=== PATIENT | male | born 1975 | race Two or more races ===

== ENCOUNTER 2020-07-28 11:10 | Inpatient (IN) | payer MEDICAID, OTHER ==
[~2020-07-28] VITALS: Ht 167.6 cm; Wt 141.0 kg
[2020-07-28] MEDS ORDERED: ALBUTEROL SULF 2.5 MG/0.5ML(0.5%) NEB SOLN ONE (11:19)
[2020-07-28] MEDS ORDERED: IPRATROPIUM BROM 0.5 MG/2.5ML INH SOL ONE (11:20)
[2020-07-28] MEDS ORDERED: ALBUTEROL SULF 2.5 MG/0.5ML(0.5%) NEB SOLN NEB ONE (11:30)
[2020-07-28] MEDS ORDERED: DexAMETHasone SOD PHOS 10MG/1ML VIAL INJ IV ONE (11:30)
[2020-07-28] MEDS ORDERED: IPRATROPIUM BROM 0.5 MG/2.5ML INH SOL NEB ONE (11:30)
[2020-07-28 12:30] LABS: Basophils # (auto) 0.1 10 ^3/uL (0-0.2); Basophils % (auto) 0.4 % (0.0-2.0); Eosinophils # (auto) 0 10 ^3/uL (0-0.8); Eosinophils % (auto) 0.1 % (0.0-7.0); Hemoglobin 14.6 g/dL (13.5-17.5); Lymphocytes # (auto) 0.8 10 ^3/uL (0.4-5.4); Lymphocytes % (auto) 4.1 % (10.0-50.0); Mean Corpuscular Hemoglobin 27.4 pg (28.0-32.0); Mean Corpuscular Hgb Conc. 32.4 g/dL (32.0-36.0); Mean Corpuscular Volume 84.5 fL (80.0-100.0); Monocytes # (auto) 0.5 10 ^3/uL (0-1.3); Monocytes % (auto) 2.7 % (0.0-12.0); Neutrophils # (auto) 18.2 10 ^3/uL (1.6-8.6); Neutrophils % (auto) 92.7 % (37.0-80.0); Nucleated Red Blood Cells % 0.9 %; Platelet Count (auto) 298 10^3/uL (140-450); Red Blood Cells 5.32 10^6/uL (4.5-5.90); Red Cell Distribution Width 15.8 % (11.8-14.3); White Blood Cell 19.6 10^3/uL (4.4-10.8)
[2020-07-28 12:44] LABS: INR 1.12 (0.9-1.15)
[2020-07-28 12:51] LABS: Albumin 2.3 g/dL (3.4-5.0); Magnesium 2.5 mg/dL (1.6-2.6); Potassium 4.6 mmol/L (3.5-5.1)
[2020-07-28 12:59] LABS: BUN/Creatinine Ratio 8.6; Bilirubin, Total 0.4 mg/dL (0.2-1.0)
[2020-07-28 13:27] LABS: Lactic Acid w/Reflex 6.2 mmol/L (0.4-2.0)
[2020-07-28] MEDS ORDERED: ASPirin 325 MG TAB PO ONE (13:30)
[2020-07-28] MEDS ORDERED: AZITHROMYCIN 500MG/ 250ML 250 ML IV ONE (13:30)
[2020-07-28] MEDS ORDERED: cefTRIAXone 1GM/50ML D5W 50 ML IV ONE (13:45)
[2020-07-28] MEDS ORDERED: ENOXAPARIN SOD 80 MG/0.8ML SYRINGE SC ONE (13:45)
[2020-07-28] MEDS ORDERED: MORPHINE SULF INJ 2 MG/ML SYRINGE 1ML IV PRN ×3 (14:00→21:30)
[2020-07-28] MEDS ORDERED: NITROGLYCERIN 0.4 MG SL TAB SL PRN ×2 (14:00→21:30)
[2020-07-28] MEDS ORDERED: FUROSEMIDE 40 MG/4 ML VIAL IV ONE (14:45)
[2020-07-28 15:09] LABS: Lactate Dehydrogenase 965 U/L (87-241)
[2020-07-28 15:14] LABS: CRP High Sensitivity > 19.0 mg/dL (< 0.3)
[2020-07-28 16:29] LABS: Urine Amorphous Crystal FEW /hpf (None Seen); Urine Bacteria NONE SEEN /hpf (None Seen); Urine Blood 2+ /uL (Negative); Urine Hyaline Cast MOD /lpf (0 - 2); Urine Mucus FEW (None Seen); Urine Specific Gravity 1.024 (1.001-1.035); Urine WBC 14 /hpf (0 - 3)
[2020-07-28 18:37] VITALS: BP 115/88
[2020-07-28] MEDS ORDERED: SUCCINYLCHOLINE CHLORIDE 20 MG/ML 10ML VIAL IV ONE (20:09)
[2020-07-28] MEDS ORDERED: ETOMIDATE (2MG/ML) 20ML VIAL IV ONE (20:09)
[2020-07-28] MEDS ORDERED: MIDAZOLAM DRIP 50 mg/50mL 50 ML IV ONE (20:09)
[2020-07-28] MEDS ORDERED: PROPOFOL 100 ML IV ONE (20:09)
[2020-07-28 20:24] VITALS: BP 153/94
[2020-07-28] MEDS ORDERED: ROCURONIUM 10MG/ML 10ML VIAL IV ONE ×3 (20:40→23:31)
[2020-07-28] MEDS ORDERED: ALUM & MAG HYDROX-SIMETH LIQ(MAALOX) 30 ML PO PRN (21:30)
[2020-07-28] MEDS ORDERED: ONDANSETRON HCL 4 MG/2 ML VIAL IV PRN (21:30)
[2020-07-28] MEDS ORDERED: ACETAMINOPHEN 500 MG TAB PO PRN (21:30)
[2020-07-28] MEDS ORDERED: LORazepam 0.5 MG TAB PO PRN (21:30)
[2020-07-28] MEDS ORDERED: ALBUMIN 25% 100 ML IV ONE (21:30)
[2020-07-28] MEDS: PROPOFOL 100 ML IV SCH (21:30)
[2020-07-28] MEDS ORDERED: REMDESIVIR PER PHARMACY 0 ML IV SCH (21:30)
[2020-07-28] MEDS ORDERED: ALBUTEROL SULF HFA 90MCG INH 200DOSE IN PRN (21:30)
[2020-07-28] MEDS ORDERED: DEXTROSE (50%) 50ML SYRG IV PRN (21:30)
[2020-07-28] MEDS ORDERED: DOCUSATE SOD 100 MG CAP PO PRN (21:30)
[2020-07-28] MEDS ORDERED: HYDROcodone-ACET 5/325MG TAB PO PRN (21:30)
[2020-07-28] MEDS: BUDESONIDE (INHALATION) 180 MCG IH IN SCH (22:00)
[2020-07-28] MEDS ORDERED: levoFLOXacin 500MG 100 ML IV ONE (22:00)
[2020-07-28] MEDS ORDERED: FAMOTIDINE (10MG/ML) 2ML VL IV SCH (22:00)
[2020-07-28] MEDS ORDERED: ENOXAPARIN SOD 40 MG/0.4 ML SYRINGE SC SCH (22:00)
[2020-07-28] MEDS: MIDAZOLAM DRIP 50 mg/50mL 50 ML IV SCH (22:15)
[2020-07-28 22:30] VITALS: BP 95/48
[2020-07-28] MEDS ORDERED: ROCURONIUM BROMIDE 1,000 MG in D5W 5% 150 ML IV SCH (22:30)
[2020-07-28 23:18] LABS: Basophils # (auto) 0.1 10 ^3/uL (0-0.2); Basophils % (auto) 0.5 % (0.0-2.0); Eosinophils # (auto) 0 10 ^3/uL (0-0.8); Hematocrit 43.5 % (41.0-53.0); Hemoglobin 14.3 g/dL (13.5-17.5); Lymphocytes # (auto) 0.7 10 ^3/uL (0.4-5.4); Mean Corpuscular Hemoglobin 27.7 pg (28.0-32.0); Mean Corpuscular Hgb Conc. 32.9 g/dL (32.0-36.0); Mean Corpuscular Volume 84.3 fL (80.0-100.0); Monocytes # (auto) 0.6 10 ^3/uL (0-1.3); Monocytes % (auto) 2.7 % (0.0-12.0); Neutrophils # (auto) 20.2 10 ^3/uL (1.6-8.6); Neutrophils % (auto) 93.8 % (37.0-80.0); Nucleated Red Blood Cells % 0.9 %; Platelet Count (auto) 286 10^3/uL (140-450); Red Blood Cells 5.16 10^6/uL (4.5-5.90); White Blood Cell 21.5 10^3/uL (4.4-10.8)
[2020-07-28 23:44] LABS: Calcium 7.9 mg/dL (8.5-10.1); Magnesium 2.5 mg/dL (1.6-2.6); Potassium 5.3 mmol/L (3.5-5.1)
[2020-07-28 23:52] LABS: BUN/Creatinine Ratio 13.3; Bilirubin, Total 0.4 mg/dL (0.2-1.0)
[2020-07-29] VITALS (32 sets, daily range): BP systolic 106–133; BP diastolic 61–86
[2020-07-29] MEDS: CLINDAMYCIN 300MG IV 50 ML IV SCH ×2 (00:20→07:28)
[2020-07-29] MEDS: ACCU-CHEK COMFORT CURVE STRIP VI SCH ×5 (00:25→23:48)
[2020-07-29 01:07] LABS: Albumin 2.3 g/dL (3.4-5.0)
[2020-07-29 01:53] LABS: CRP High Sensitivity 46.9 mg/dL (< 0.3)
[2020-07-29 02:56] LABS: Urine Bacteria MANY /hpf (None Seen); Urine Blood 2+ /uL (Negative); Urine Hyaline Cast MANY /lpf (0 - 2); Urine Mucus FEW (None Seen); Urine Specific Gravity 1.019 (1.001-1.035); Urine WBC 56 /hpf (0 - 3); Urine WBC Clumps PRESENT /hpf (None Seen)
[2020-07-29 03:34] LABS: Alcohol, Urine < 3.0 mg/dL (0-10); Amphetamine Screen, Urine NEGATIVE (NEGATIVE); Barbiturate Scree,Urine NEGATIVE (NEGATIVE); Benzodiazephine Screen, Urine POSITIVE (NEGATIVE); Cannabinoid Screen, Urine NEGATIVE (NEGATIVE); Cocaine Screen, Urine NEGATIVE (NEGATIVE); Opiate Scree,Urine NEGATIVE (NEGATIVE); Phencyclidine Screen, Urine NEGATIVE (NEGATIVE)
[2020-07-29] MEDS: ALBUMIN 25% 100 ML IV SCH ×2 (05:00→19:57)
[2020-07-29] MEDS: InsuLIN REG 1unit/0.01ml Soln (100units/ml) SC SCH ×5 (06:00→23:50)
[2020-07-29 07:28] LABS: Basophils # (auto) 0 10 ^3/uL (0-0.2); Basophils % (auto) 0.3 % (0.0-2.0); Eosinophils # (auto) 0 10 ^3/uL (0-0.8); Hematocrit 41.3 % (41.0-53.0); Hemoglobin 13.5 g/dL (13.5-17.5); Lymphocytes # (auto) 0.6 10 ^3/uL (0.4-5.4); Lymphocytes % (auto) 3.2 % (10.0-50.0); Mean Corpuscular Hemoglobin 27.5 pg (28.0-32.0); Mean Corpuscular Hgb Conc. 32.6 g/dL (32.0-36.0); Mean Corpuscular Volume 84.2 fL (80.0-100.0); Monocytes # (auto) 0.4 10 ^3/uL (0-1.3); Monocytes % (auto) 2.4 % (0.0-12.0); Neutrophils % (auto) 94.1 % (37.0-80.0); Nucleated Red Blood Cells % 0.2 %; Platelet Count (auto) 277 10^3/uL (140-450); Red Cell Distribution Width 15.9 % (11.8-14.3)
[2020-07-29 07:43] LABS: Potassium 5.2 mmol/L (3.5-5.1)
[2020-07-29 07:46] LABS: INR 1.11 (0.9-1.15); Partial Thromboplastin Time 34.6 sec (23.0-31.2)
[2020-07-29 07:58] LABS: Albumin 2.2 g/dL (3.4-5.0); BUN/Creatinine Ratio 15.9; Bilirubin, Total 0.4 mg/dL (0.2-1.0); Calcium 7.5 mg/dL (8.5-10.1); Magnesium 2.8 mg/dL (1.6-2.6); Phosphorus 5.2 mg/dL (2.5-4.90); Total Protein 7.7 g/dL (6.4-8.2)
[2020-07-29] MEDS ORDERED: IVERMECTIN 3 MG TAB PO ONE (10:00)
[2020-07-29] MEDS ORDERED: ENOXAPARIN SOD 80 MG/0.8ML SYRINGE SC SCH (10:00)
[2020-07-29] MEDS: levoFLOXacin 250MG 50 ML IV SCH (10:00)
[2020-07-29] MEDS: ASCORBIC ACID 1,000 MG TAB PO SCH (10:00)
[2020-07-29] MEDS: CHOLECALCIFEROL (VITD3) 2,000 UNIT CAP/TAB PO SCH (10:00)
[2020-07-29] MEDS: DexAMETHasone SOD PHOS 10MG/1ML VIAL INJ IV SCH (10:00)
[2020-07-29] MEDS: ZINC SULFATE 220mg CAP or TAB PO SCH (10:00)
[2020-07-29] MEDS ORDERED: SODIUM ZIRCONIUM CYCL 10 GM PAK PO ONE (10:15)
[2020-07-29] MEDS: FUROSEMIDE 20 MG/2 ML VIAL IV SCH ×2 (11:27→18:21)
[2020-07-29] MEDS ORDERED: diphenhdrAMINE HCL 50 MG/1 ML VL IV ONE (16:30)
[2020-07-29] MEDS ORDERED: ACETAMINOPHEN 650 mg PER 20.3 mL UD PO ONE (16:30)
[2020-07-29] MEDS ORDERED: methylPREDNISolone SOD SUCC 40 MG/ML VL IV ONE (16:30)
[2020-07-29] MEDS ORDERED: TOCILIZUMAB 400 MG in SODIUM CHL 0.9% 80 ML IV ONE (17:00)
[2020-07-29] MEDS: ROCURONIUM BROMIDE 1,000 MG in D5W 5% 150 ML IV SCH ×2 (17:32→23:10)
[2020-07-29] MEDS: BUDESONIDE (INHALATION) 180 MCG IH IN SCH (22:00)
[2020-07-29] MEDS: LINEZOLID 600MG/300ML 300 ML IV SCH (22:54)
[2020-07-29] MEDS: PROPOFOL 100 ML IV SCH (23:12)
[2020-07-29] MEDS: ENOXAPARIN SOD 80 MG/0.8ML SYRINGE SC SCH (23:40)
[2020-07-29] MEDS ORDERED: FAMOTIDINE (10MG/ML) 2ML VL IV ONE (23:45)
[2020-07-30] VITALS (96 sets, daily range): BP systolic 96–147; BP diastolic 58–85
[2020-07-30] MEDS: MIDAZOLAM DRIP 50 mg/50mL 50 ML IV SCH ×4 (00:34→22:46)
[2020-07-30] MEDS ORDERED: ALBUMIN 25% 100 ML IV ONE (03:27)
[2020-07-30] MEDS: ALBUMIN 25% 100 ML IV SCH (03:28)
[2020-07-30] MEDS: PROPOFOL 100 ML IV SCH ×4 (03:58→21:54)
[2020-07-30] MEDS: ACCU-CHEK COMFORT CURVE STRIP VI SCH ×4 (06:21→23:18)
[2020-07-30] MEDS: FUROSEMIDE 20 MG/2 ML VIAL IV SCH (06:23)
[2020-07-30 06:24] LABS: Potassium 4.3 mmol/L (3.5-5.1)
[2020-07-30] MEDS: InsuLIN REG 1unit/0.01ml Soln (100units/ml) SC SCH ×4 (06:24→23:38)
[2020-07-30 06:37] LABS: Albumin 2.6 g/dL (3.4-5.0); BUN/Creatinine Ratio 21.1; Bilirubin, Total 1.2 mg/dL (0.2-1.0); Total Protein 7.6 g/dL (6.4-8.2)
[2020-07-30 07:28] LABS: Basophils # (auto) 0 10 ^3/uL (0-0.2); Basophils % (auto) 0.1 % (0.0-2.0); Eosinophils # (auto) 0 10 ^3/uL (0-0.8); Hematocrit 36.9 % (41.0-53.0); Hemoglobin 12.4 g/dL (13.5-17.5); Lymphocytes # (auto) 0.4 10 ^3/uL (0.4-5.4); Lymphocytes % (auto) 4.1 % (10.0-50.0); Mean Corpuscular Hgb Conc. 33.7 g/dL (32.0-36.0); Mean Corpuscular Volume 83.2 fL (80.0-100.0); Monocytes # (auto) 0.4 10 ^3/uL (0-1.3); Monocytes % (auto) 3.9 % (0.0-12.0); Neutrophils # (auto) 9.6 10 ^3/uL (1.6-8.6); Neutrophils % (auto) 91.9 % (37.0-80.0); Nucleated Red Blood Cells % 0.7 %; Platelet Count (auto) 265 10^3/uL (140-450); Red Blood Cells 4.43 10^6/uL (4.5-5.90); Red Cell Distribution Width 15.8 % (11.8-14.3); White Blood Cell 10.4 10^3/uL (4.4-10.8)
[2020-07-30] MEDS ORDERED: methylPREDNISolone SOD SUCC 40 MG/ML VL IV ONE (08:30)
[2020-07-30] MEDS ORDERED: diphenhdrAMINE HCL 50 MG/1 ML VL IV ONE (08:30)
[2020-07-30] MEDS ORDERED: ACETAMINOPHEN 650 mg PER 20.3 mL UD PO ONE (08:30)
[2020-07-30] MEDS: FAMOTIDINE (10MG/ML) 2ML VL IV SCH (08:37)
[2020-07-30] MEDS: DexAMETHasone SOD PHOS 10MG/1ML VIAL INJ IV SCH (08:37)
[2020-07-30] MEDS ORDERED: ACETAMINOPHEN 650 MG RECT SUPP PR ONE (08:45)
[2020-07-30] MEDS ORDERED: TOCILIZUMAB 400 MG in SODIUM CHL 0.9% 80 ML IV ONE (09:00)
[2020-07-30] MEDS: CHOLECALCIFEROL (VITD3) 2,000 UNIT CAP/TAB PO SCH (09:34)
[2020-07-30] MEDS: ASCORBIC ACID 1,000 MG TAB PO SCH (10:00)
[2020-07-30] MEDS: ZINC SULFATE 220mg CAP or TAB PO SCH (10:00)
[2020-07-30] MEDS ORDERED: Jevity 1.2 Cal/Fiber 1 Liter GT SCH (10:30)
[2020-07-30] MEDS ORDERED: CLINIMIX PER PHARMACY 0 ML IV SCH (10:45)
[2020-07-30] MEDS: levoFLOXacin 250MG 50 ML IV SCH (10:49)
[2020-07-30] MEDS: FREE WATER GT SCH ×2 (11:43→18:29)
[2020-07-30] MEDS: LINEZOLID 600MG/300ML 300 ML IV SCH ×2 (11:44→21:50)
[2020-07-30] MEDS: ENOXAPARIN SOD 80 MG/0.8ML SYRINGE SC SCH ×2 (12:00→22:05)
[2020-07-30] MEDS ORDERED: DEXTROSE (50%) 50ML SYRG IV SCH (12:00)
[2020-07-30] MEDS: BUDESONIDE (INHALATION) 0.5 MG/2 ML NEB NEB SCH ×2 (15:33→22:17)
[2020-07-30] MEDS: AMINO ACID INFUSION IN D10W 1,000 ML IV NR (21:17)
[2020-07-30] MEDS: ROCURONIUM BROMIDE 1,000 MG in D5W 5% 150 ML IV SCH (21:46)
[2020-07-30] MEDS: ALBUTEROL SULF 2.5 MG/0.5ML(0.5%) NEB SOLN NEB PRN (22:17)
[2020-07-31] VITALS (72 sets, daily range): BP systolic 96–201; BP diastolic 47–98
[2020-07-31] MEDS: PROPOFOL 100 ML IV SCH ×5 (02:48→23:01)
[2020-07-31 06:12] LABS: Basophils # (auto) 0 10 ^3/uL (0-0.2); Basophils % (auto) 0.2 % (0.0-2.0); Eosinophils # (auto) 0 10 ^3/uL (0-0.8); Lymphocytes # (auto) 0.5 10 ^3/uL (0.4-5.4); Lymphocytes % (auto) 5.5 % (10.0-50.0); Mean Corpuscular Hemoglobin 27.4 pg (28.0-32.0); Mean Corpuscular Hgb Conc. 33.3 g/dL (32.0-36.0); Mean Corpuscular Volume 82.4 fL (80.0-100.0); Monocytes # (auto) 0.8 10 ^3/uL (0-1.3); Monocytes % (auto) 9.4 % (0.0-12.0); Neutrophils # (auto) 7.1 10 ^3/uL (1.6-8.6); Neutrophils % (auto) 84.9 % (37.0-80.0); Nucleated Red Blood Cells % 2.2 %; Platelet Count (auto) 381 10^3/uL (140-450); Red Blood Cells 4.37 10^6/uL (4.5-5.90); Red Cell Distribution Width 15.6 % (11.8-14.3); White Blood Cell 8.4 10^3/uL (4.4-10.8)
[2020-07-31] MEDS: InsuLIN REG 1unit/0.01ml Soln (100units/ml) SC SCH ×4 (06:45→23:17)
[2020-07-31] MEDS: ACCU-CHEK COMFORT CURVE STRIP VI SCH ×4 (06:45→23:17)
[2020-07-31] MEDS: BUDESONIDE (INHALATION) 0.5 MG/2 ML NEB NEB SCH ×2 (06:50→19:04)
[2020-07-31] MEDS: ALBUTEROL SULF 2.5 MG/0.5ML(0.5%) NEB SOLN NEB PRN ×2 (06:50→19:04)
[2020-07-31] MEDS: CHOLECALCIFEROL (VITD3) 2,000 UNIT CAP/TAB PO SCH (10:00)
[2020-07-31] MEDS: FAMOTIDINE (10MG/ML) 2ML VL IV SCH (10:00)
[2020-07-31] MEDS: ZINC SULFATE 220mg CAP or TAB PO SCH (10:04)
[2020-07-31] MEDS: ENOXAPARIN SOD 80 MG/0.8ML SYRINGE SC SCH ×2 (10:05→23:07)
[2020-07-31] MEDS: DexAMETHasone SOD PHOS 10MG/1ML VIAL INJ IV SCH (10:08)
[2020-07-31] MEDS: LINEZOLID 600MG/300ML 300 ML IV SCH ×2 (10:09→23:25)
[2020-07-31] MEDS: FUROSEMIDE 20 MG/2 ML VIAL IV SCH (10:11)
[2020-07-31] MEDS: ASCORBIC ACID 1,000 MG TAB PO SCH (10:15)
[2020-07-31] MEDS: levoFLOXacin 250MG 50 ML IV SCH (10:16)
[2020-07-31 10:21] LABS: Albumin 2.3 g/dL (3.4-5.0); Calcium 8.5 mg/dL (8.5-10.1); Magnesium 3.5 mg/dL (1.6-2.6)
[2020-07-31 10:27] LABS: BUN/Creatinine Ratio 30.1; Phosphorus 2.8 mg/dL (2.5-4.90)
[2020-07-31] MEDS: DOPamine 1600MCG/ML D5W 250 ML IV SCH ×2 (11:00→17:19)
[2020-07-31] MEDS ORDERED: Glucerna 1.2 Cal 1Liter BOTTLE GT SCH (15:15)
[2020-07-31] MEDS ORDERED: REMDESIVIR 200 MG in NS 210ml LOADING DOSE ADULT IV ONE ×2 (18:00→20:00)
[2020-07-31] MEDS: fentaNYL Drip 2500mCg/250mlNS 250 ML IV SCH (18:18)
[2020-07-31] MEDS: MIDAZOLAM DRIP 50 mg/50mL 50 ML IV SCH (18:57)
[2020-07-31 19:40] LABS: Creatinine, Urine 110 mg/dL (30.0-125.0); Sodium Urine 11 mmol/L (40-220)
[2020-07-31] MEDS: AMINO ACID INFUSION IN D10W 1,000 ML IV NR (19:49)
[2020-07-31] MEDS ORDERED: AMINO ACID INFUSION IN D10W 1,000 ML IV NR (20:00)
[2020-08-01] VITALS (97 sets, daily range): BP systolic 53–132; BP diastolic 47–70
[2020-08-01] MEDS: MIDAZOLAM DRIP 50 mg/50mL 50 ML IV SCH ×5 (01:34→22:43)
[2020-08-01] MEDS: PROPOFOL 100 ML IV SCH ×4 (01:35→09:30)
[2020-08-01 04:25] LABS: Hematocrit 37.2 % (41.0-53.0); Hemoglobin 12.3 g/dL (13.5-17.5); Mean Corpuscular Hemoglobin 27.2 pg (28.0-32.0); Mean Corpuscular Volume 82.5 fL (80.0-100.0); Platelet Count (auto) 328 10^3/uL (140-450); Red Blood Cells 4.51 10^6/uL (4.5-5.90); Red Cell Distribution Width 15.7 % (11.8-14.3); White Blood Cell 9.6 10^3/uL (4.4-10.8)
[2020-08-01 04:55] LABS: Potassium 4.3 mmol/L (3.5-5.1)
[2020-08-01 05:04] LABS: Albumin 2.2 g/dL (3.4-5.0); BUN/Creatinine Ratio 37.9; Bilirubin, Total 0.8 mg/dL (0.2-1.0); Calcium 8.1 mg/dL (8.5-10.1); Magnesium 3.4 mg/dL (1.6-2.6); Phosphorus 3.7 mg/dL (2.5-4.90); Total Protein 6.9 g/dL (6.4-8.2)
[2020-08-01 05:15] LABS: Basophils % (manual) 0 (0.0-2.0); Blast Cells 0; Eosinophils % (manual) 0 (0-7); Metamyelocytes % 0; Promyelocytes % 0
[2020-08-01] MEDS: ACCU-CHEK COMFORT CURVE STRIP VI SCH ×4 (06:00→23:27)
[2020-08-01] MEDS: InsuLIN REG 1unit/0.01ml Soln (100units/ml) SC SCH ×4 (06:00→23:27)
[2020-08-01] MEDS: BUDESONIDE (INHALATION) 0.5 MG/2 ML NEB NEB SCH ×2 (06:15→21:55)
[2020-08-01] MEDS: ALBUTEROL SULF 2.5 MG/0.5ML(0.5%) NEB SOLN NEB PRN ×2 (06:15→21:55)
[2020-08-01 06:38] LABS: Band Neutrophils % (manual) 9; Lymphocytes % (manual) 11 (10.0-50.0); Monocytes % (manual) 4 (0-12); Myelocytes % 2
[2020-08-01 06:39] LABS: Reactive Lymphocytes 1
[2020-08-01] MEDS: fentaNYL Drip 2500mCg/250mlNS 250 ML IV SCH (08:02)
[2020-08-01] MEDS: levoFLOXacin 250MG 50 ML IV SCH (09:48)
[2020-08-01] MEDS: DexAMETHasone SOD PHOS 10MG/1ML VIAL INJ IV SCH (09:48)
[2020-08-01] MEDS: FUROSEMIDE 20 MG/2 ML VIAL IV SCH (09:48)
[2020-08-01] MEDS: FAMOTIDINE (10MG/ML) 2ML VL IV SCH ×2 (09:52→22:00)
[2020-08-01] MEDS: CHOLECALCIFEROL (VITD3) 2,000 UNIT CAP/TAB PO SCH (09:53)
[2020-08-01] MEDS: ZINC SULFATE 220mg CAP or TAB PO SCH (09:53)
[2020-08-01] MEDS: ASCORBIC ACID 1,000 MG TAB PO SCH (09:53)
[2020-08-01] MEDS: LINEZOLID 600MG/300ML 300 ML IV SCH ×2 (09:53→22:00)
[2020-08-01] MEDS: ENOXAPARIN SOD 80 MG/0.8ML SYRINGE SC SCH ×2 (10:00→22:41)
[2020-08-01] MEDS ORDERED: METOCLOPRAMIDE HCL 5MG/ml INJ 2ml VIAL IV ONE (14:30)
[2020-08-01] MEDS: REMDESIVIR 100mg 100 MG in SODIUM CHL 0.9% 230 ML IV SCH (15:00)
[2020-08-01] MEDS ORDERED: AMINO ACID INFUSION IN D10W 1,000 ML IV NR (20:00)
[2020-08-01] MEDS: METOCLOPRAMIDE HCL 5MG/ml INJ 2ml VIAL IV SCH (22:41)
[2020-08-02] VITALS (83 sets, daily range): BP systolic 66–132; BP diastolic 45–68
[2020-08-02] MEDS: MIDAZOLAM DRIP 50 mg/50mL 50 ML IV SCH ×3 (03:42→20:26)
[2020-08-02 04:21] LABS: Albumin 2.2 g/dL (3.4-5.0); Calcium 7.6 mg/dL (8.5-10.1); Potassium 4.5 mmol/L (3.5-5.1)
[2020-08-02 04:24] LABS: Bilirubin, Total 0.7 mg/dL (0.2-1.0); Total Protein 6.6 g/dL (6.4-8.2)
[2020-08-02] MEDS: InsuLIN REG 1unit/0.01ml Soln (100units/ml) SC SCH ×3 (06:00→18:00)
[2020-08-02] MEDS: METOCLOPRAMIDE HCL 5MG/ml INJ 2ml VIAL IV SCH ×2 (06:01→22:00)
[2020-08-02] MEDS: ACCU-CHEK COMFORT CURVE STRIP VI SCH ×4 (06:02→23:38)
[2020-08-02] MEDS: PROPOFOL 100 ML IV SCH (07:39)
[2020-08-02] MEDS: DexAMETHasone SOD PHOS 10MG/1ML VIAL INJ IV SCH (09:48)
[2020-08-02] MEDS: FUROSEMIDE 20 MG/2 ML VIAL IV SCH ×2 (09:49→18:00)
[2020-08-02] MEDS: levoFLOXacin 500MG 100 ML IV SCH (09:49)
[2020-08-02] MEDS: FAMOTIDINE (10MG/ML) 2ML VL IV SCH ×2 (09:50→22:00)
[2020-08-02] MEDS: LINEZOLID 600MG/300ML 300 ML IV SCH (09:50)
[2020-08-02] MEDS: ZINC SULFATE 220mg CAP or TAB PO SCH (09:50)
[2020-08-02] MEDS: ASCORBIC ACID 1,000 MG TAB PO SCH (09:50)
[2020-08-02] MEDS: CHOLECALCIFEROL (VITD3) 2,000 UNIT CAP/TAB PO SCH (09:51)
[2020-08-02] MEDS: ENOXAPARIN SOD 80 MG/0.8ML SYRINGE SC SCH (09:51)
[2020-08-02] MEDS: BUDESONIDE (INHALATION) 0.5 MG/2 ML NEB NEB SCH ×2 (10:00→22:30)
[2020-08-02] MEDS: ALBUTEROL SULF 2.5 MG/0.5ML(0.5%) NEB SOLN NEB PRN (10:58)
[2020-08-02] MEDS ORDERED: LORazepam 2MG/ML-1ML VIAL IV PRN (13:00)
[2020-08-02] MEDS: REMDESIVIR 100mg 100 MG in SODIUM CHL 0.9% 230 ML IV SCH (15:00)
[2020-08-02] MEDS: DOPamine 1600MCG/ML D5W 250 ML IV SCH ×2 (18:51→20:14)
[2020-08-02] MEDS: fentaNYL Drip 2500mCg/250mlNS 250 ML IV SCH (23:34)
[2020-08-03] VITALS (65 sets, daily range): BP systolic 73–142; BP diastolic 43–76
[2020-08-03] MEDS: DexAMETHasone SOD PHOS 10MG/1ML VIAL INJ IV SCH ×2 (00:42→10:00)
[2020-08-03] MEDS: LINEZOLID 600MG/300ML 300 ML IV SCH ×2 (00:43→10:11)
[2020-08-03] MEDS: ENOXAPARIN SOD 80 MG/0.8ML SYRINGE SC SCH ×2 (00:44→10:11)
[2020-08-03] MEDS: MIDAZOLAM DRIP 50 mg/50mL 50 ML IV SCH ×4 (01:00→23:00)
[2020-08-03 05:28] LABS: Basophils # (auto) 0 10 ^3/uL (0-0.2); Basophils % (auto) 0.2 % (0.0-2.0); Eosinophils # (auto) 0.7 10 ^3/uL (0-0.8); Eosinophils % (auto) 6.1 % (0.0-7.0); Hematocrit 41.7 % (41.0-53.0); Hemoglobin 13.7 g/dL (13.5-17.5); Lymphocytes # (auto) 0.5 10 ^3/uL (0.4-5.4); Lymphocytes % (auto) 4.4 % (10.0-50.0); Mean Corpuscular Hemoglobin 27.7 pg (28.0-32.0); Mean Corpuscular Hgb Conc. 32.8 g/dL (32.0-36.0); Mean Corpuscular Volume 84.5 fL (80.0-100.0); Monocytes # (auto) 0.3 10 ^3/uL (0-1.3); Monocytes % (auto) 3.1 % (0.0-12.0); Neutrophils # (auto) 9.5 10 ^3/uL (1.6-8.6); Neutrophils % (auto) 86.2 % (37.0-80.0); Nucleated Red Blood Cells % 0.3 %; Platelet Count (auto) 319 10^3/uL (140-450); Red Blood Cells 4.93 10^6/uL (4.5-5.90)
[2020-08-03] MEDS: METOCLOPRAMIDE HCL 5MG/ml INJ 2ml VIAL IV SCH ×2 (06:00→14:00)
[2020-08-03] MEDS: FUROSEMIDE 20 MG/2 ML VIAL IV SCH ×2 (06:00→18:21)
[2020-08-03] MEDS: InsuLIN REG 1unit/0.01ml Soln (100units/ml) SC SCH ×3 (06:00→18:00)
[2020-08-03 06:01] LABS: Albumin 2.2 g/dL (3.4-5.0); BUN/Creatinine Ratio 45.6; Calcium 7.7 mg/dL (8.5-10.1); Total Protein 6.8 g/dL (6.4-8.2)
[2020-08-03] MEDS: ALBUTEROL SULF 2.5 MG/0.5ML(0.5%) NEB SOLN NEB PRN ×2 (06:50→18:54)
[2020-08-03] MEDS: BUDESONIDE (INHALATION) 0.5 MG/2 ML NEB NEB SCH ×2 (06:50→18:54)
[2020-08-03] MEDS: DOPamine 1600MCG/ML D5W 250 ML IV SCH (08:05)
[2020-08-03] MEDS: ASCORBIC ACID 1,000 MG TAB PO SCH (10:11)
[2020-08-03] MEDS: CHOLECALCIFEROL (VITD3) 2,000 UNIT CAP/TAB PO SCH (10:11)
[2020-08-03] MEDS: ZINC SULFATE 220mg CAP or TAB PO SCH (10:11)
[2020-08-03] MEDS: levoFLOXacin 500MG 100 ML IV SCH (10:11)
[2020-08-03] MEDS: FAMOTIDINE (10MG/ML) 2ML VL IV SCH (10:11)
[2020-08-03] MEDS: ACCU-CHEK COMFORT CURVE STRIP VI SCH ×2 (12:00→18:21)
[2020-08-03] MEDS ORDERED: Glucerna 1.2 Cal 1Liter BOTTLE GT SCH (13:00)
[2020-08-03] MEDS ORDERED: ALBUMIN 25% 50 ML IV ONE (13:00)
[2020-08-03] MEDS ORDERED: FLUCONAZOLE 200MG/100ML 100 ML IV ONE (13:00)
[2020-08-03] MEDS ORDERED: PIPERACILLIN-TAZOB 3.375GM 100 ML IV ONE (14:00)
[2020-08-03] MEDS: REMDESIVIR 100mg 100 MG in SODIUM CHL 0.9% 230 ML IV SCH (15:00)
[2020-08-03] MEDS: NOREPINEPHRINE 8 MG/250ML KIT 250 ML IV SCH (22:15)
[2020-08-04] VITALS (100 sets, daily range): BP systolic 97–141; BP diastolic 53–78
[2020-08-04] MEDS: PROPOFOL 100 ML IV SCH ×3 (01:00→22:14)
[2020-08-04] MEDS: fentaNYL Drip 2500mCg/250mlNS 250 ML IV SCH ×2 (01:30→23:39)
[2020-08-04] MEDS: DexAMETHasone SOD PHOS 10MG/1ML VIAL INJ IV SCH ×3 (02:40→21:38)
[2020-08-04] MEDS: FAMOTIDINE (10MG/ML) 2ML VL IV SCH ×3 (02:41→21:38)
[2020-08-04] MEDS: METOCLOPRAMIDE HCL 5MG/ml INJ 2ml VIAL IV SCH ×4 (02:42→21:38)
[2020-08-04] MEDS: MIDAZOLAM DRIP 50 mg/50mL 50 ML IV SCH ×3 (02:43→22:21)
[2020-08-04] MEDS: PIPERACILLIN-TAZOB 3.375GM 100 ML IV SCH ×4 (02:45→22:14)
[2020-08-04] MEDS: LINEZOLID 600MG/300ML 300 ML IV SCH ×3 (02:46→21:38)
[2020-08-04] MEDS: ENOXAPARIN SOD 80 MG/0.8ML SYRINGE SC SCH ×3 (02:47→21:38)
[2020-08-04 05:01] LABS: Basophils # (auto) 0 10 ^3/uL (0-0.2); Basophils % (auto) 0.1 % (0.0-2.0); Eosinophils # (auto) 0.2 10 ^3/uL (0-0.8); Hematocrit 38.6 % (41.0-53.0); Hemoglobin 12.6 g/dL (13.5-17.5); Lymphocytes # (auto) 0.5 10 ^3/uL (0.4-5.4); Lymphocytes % (auto) 7.1 % (10.0-50.0); Mean Corpuscular Hemoglobin 27.5 pg (28.0-32.0); Mean Corpuscular Hgb Conc. 32.6 g/dL (32.0-36.0); Mean Corpuscular Volume 84.2 fL (80.0-100.0); Monocytes # (auto) 0.3 10 ^3/uL (0-1.3); Monocytes % (auto) 5.3 % (0.0-12.0); Neutrophils # (auto) 5.5 10 ^3/uL (1.6-8.6); Neutrophils % (auto) 84.5 % (37.0-80.0); Nucleated Red Blood Cells % 0.3 %; Platelet Count (auto) 285 10^3/uL (140-450); Red Blood Cells 4.58 10^6/uL (4.5-5.90); Red Cell Distribution Width 15.8 % (11.8-14.3); White Blood Cell 6.5 10^3/uL (4.4-10.8)
[2020-08-04] MEDS: InsuLIN REG 1unit/0.01ml Soln (100units/ml) SC SCH ×5 (05:10→23:56)
[2020-08-04] MEDS: ACCU-CHEK COMFORT CURVE STRIP VI SCH ×4 (05:10→18:00)
[2020-08-04 05:24] LABS: Potassium 4.8 mmol/L (3.5-5.1)
[2020-08-04 05:35] LABS: Albumin 2.3 g/dL (3.4-5.0); BUN/Creatinine Ratio 44.6; Bilirubin, Total 0.7 mg/dL (0.2-1.0); Calcium 7.8 mg/dL (8.5-10.1); Total Protein 6.4 g/dL (6.4-8.2)
[2020-08-04] MEDS: FUROSEMIDE 20 MG/2 ML VIAL IV SCH ×2 (06:49→18:00)
[2020-08-04] MEDS: ALBUTEROL SULF 2.5 MG/0.5ML(0.5%) NEB SOLN NEB PRN ×2 (07:55→22:29)
[2020-08-04] MEDS: BUDESONIDE (INHALATION) 0.5 MG/2 ML NEB NEB SCH ×2 (07:55→22:29)
[2020-08-04] MEDS: DOPamine 1600MCG/ML D5W 250 ML IV SCH (08:05)
[2020-08-04] MEDS: CHOLECALCIFEROL (VITD3) 2,000 UNIT CAP/TAB PO SCH (10:00)
[2020-08-04] MEDS: ZINC SULFATE 220mg CAP or TAB PO SCH (10:00)
[2020-08-04] MEDS: ASCORBIC ACID 1,000 MG TAB PO SCH (10:00)
[2020-08-04] MEDS: FLUCONAZOLE 200MG/100ML 100 ML IV SCH (11:00)
[2020-08-04] MEDS: REMDESIVIR 100mg 100 MG in SODIUM CHL 0.9% 230 ML IV SCH (15:00)
[2020-08-04] MEDS: NOREPINEPHRINE 8 MG/250ML KIT 250 ML IV SCH (22:15)
[2020-08-05] VITALS (98 sets, daily range): BP systolic 113–143; BP diastolic 55–78
[2020-08-05] MEDS: PROPOFOL 100 ML IV SCH ×3 (01:21→23:46)
[2020-08-05] MEDS: DOPamine 1600MCG/ML D5W 250 ML IV SCH ×2 (02:42→07:40)
[2020-08-05] MEDS: MIDAZOLAM DRIP 50 mg/50mL 50 ML IV SCH ×3 (03:01→21:00)
[2020-08-05] MEDS: InsuLIN REG 1unit/0.01ml Soln (100units/ml) SC SCH ×3 (05:47→18:00)
[2020-08-05] MEDS: METOCLOPRAMIDE HCL 5MG/ml INJ 2ml VIAL IV SCH ×3 (05:47→22:00)
[2020-08-05] MEDS: FUROSEMIDE 20 MG/2 ML VIAL IV SCH (05:47)
[2020-08-05] MEDS: ACCU-CHEK COMFORT CURVE STRIP VI SCH ×4 (05:47→18:00)
[2020-08-05] MEDS: PIPERACILLIN-TAZOB 3.375GM 100 ML IV SCH ×3 (05:47→22:00)
[2020-08-05 05:58] LABS: Basophils # (auto) 0 10 ^3/uL (0-0.2); Basophils % (auto) 0.3 % (0.0-2.0); Eosinophils # (auto) 0.1 10 ^3/uL (0-0.8); Eosinophils % (auto) 0.9 % (0.0-7.0); Hematocrit 39.6 % (41.0-53.0); Lymphocytes # (auto) 0.3 10 ^3/uL (0.4-5.4); Mean Corpuscular Hemoglobin 27.7 pg (28.0-32.0); Mean Corpuscular Hgb Conc. 32.7 g/dL (32.0-36.0); Mean Corpuscular Volume 84.6 fL (80.0-100.0); Monocytes # (auto) 0.2 10 ^3/uL (0-1.3); Monocytes % (auto) 2.1 % (0.0-12.0); Neutrophils # (auto) 7.7 10 ^3/uL (1.6-8.6); Neutrophils % (auto) 92.7 % (37.0-80.0); Nucleated Red Blood Cells % 0.1 %; Platelet Count (auto) 327 10^3/uL (140-450); Red Blood Cells 4.69 10^6/uL (4.5-5.90); Red Cell Distribution Width 16.1 % (11.8-14.3); White Blood Cell 8.3 10^3/uL (4.4-10.8)
[2020-08-05 06:11] LABS: Potassium 5.1 mmol/L (3.5-5.1)
[2020-08-05 06:18] LABS: BUN/Creatinine Ratio 52.3
[2020-08-05] MEDS: ALBUTEROL SULF 2.5 MG/0.5ML(0.5%) NEB SOLN NEB PRN (06:30)
[2020-08-05] MEDS: BUDESONIDE (INHALATION) 0.5 MG/2 ML NEB NEB SCH ×2 (06:30→22:00)
[2020-08-05] MEDS: ASCORBIC ACID 1,000 MG TAB PO SCH (10:05)
[2020-08-05] MEDS: FAMOTIDINE (10MG/ML) 2ML VL IV SCH (10:05)
[2020-08-05] MEDS: CHOLECALCIFEROL (VITD3) 2,000 UNIT CAP/TAB PO SCH (10:05)
[2020-08-05] MEDS: ENOXAPARIN SOD 80 MG/0.8ML SYRINGE SC SCH ×2 (10:05→22:00)
[2020-08-05] MEDS: ZINC SULFATE 220mg CAP or TAB PO SCH (10:05)
[2020-08-05] MEDS: FLUCONAZOLE 200MG/100ML 100 ML IV SCH (10:05)
[2020-08-05] MEDS: LINEZOLID 600MG/300ML 300 ML IV SCH ×2 (10:31→22:00)
[2020-08-05] MEDS: DexAMETHasone SOD PHOS 10MG/1ML VIAL INJ IV SCH ×2 (11:00→22:00)
[2020-08-05] MEDS: ERGOCALCIFEROL 50,000 UNIT(1.25MG) CAP PO SCH (16:15)
[2020-08-05] MEDS ORDERED: PANTOPRAZOLE 40 MG/10 ML VIAL INJ IV ONE (16:15)
[2020-08-05] MEDS: NOREPINEPHRINE 8 MG/250ML KIT 250 ML IV SCH (22:15)
[2020-08-06] VITALS (68 sets, daily range): BP systolic 98–170; BP diastolic 52–89
[2020-08-06] MEDS: fentaNYL Drip 2500mCg/250mlNS 250 ML IV SCH ×2 (02:15→16:30)
[2020-08-06] MEDS: PROPOFOL 100 ML IV SCH ×4 (05:20→20:30)
[2020-08-06] MEDS: MIDAZOLAM DRIP 50 mg/50mL 50 ML IV SCH ×4 (05:23→21:00)
[2020-08-06] MEDS: InsuLIN REG 1unit/0.01ml Soln (100units/ml) SC SCH ×3 (06:00→12:00)
[2020-08-06] MEDS: FUROSEMIDE 20 MG/2 ML VIAL IV SCH (06:00)
[2020-08-06 06:08] LABS: Basophils # (auto) 0 10 ^3/uL (0-0.2); Basophils % (auto) 0.4 % (0.0-2.0); Eosinophils # (auto) 0 10 ^3/uL (0-0.8); Eosinophils % (auto) 0.2 % (0.0-7.0); Hemoglobin 12.9 g/dL (13.5-17.5); Lymphocytes # (auto) 0.5 10 ^3/uL (0.4-5.4); Lymphocytes % (auto) 6.3 % (10.0-50.0); Mean Corpuscular Hemoglobin 27.8 pg (28.0-32.0); Mean Corpuscular Volume 84.2 fL (80.0-100.0); Monocytes # (auto) 0.4 10 ^3/uL (0-1.3); Monocytes % (auto) 5.4 % (0.0-12.0); Neutrophils # (auto) 6.3 10 ^3/uL (1.6-8.6); Neutrophils % (auto) 87.7 % (37.0-80.0); Nucleated Red Blood Cells % 0.1 %; Platelet Count (auto) 327 10^3/uL (140-450); Red Blood Cells 4.63 10^6/uL (4.5-5.90); White Blood Cell 7.2 10^3/uL (4.4-10.8)
[2020-08-06] MEDS: METOCLOPRAMIDE HCL 5MG/ml INJ 2ml VIAL IV SCH ×3 (06:29→22:00)
[2020-08-06] MEDS: PIPERACILLIN-TAZOB 3.375GM 100 ML IV SCH ×3 (06:30→22:00)
[2020-08-06 06:32] LABS: Albumin 2.4 g/dL (3.4-5.0); Calcium 8.1 mg/dL (8.5-10.1); Potassium 4.7 mmol/L (3.5-5.1)
[2020-08-06 06:36] LABS: BUN/Creatinine Ratio 47.8; Bilirubin, Total 0.6 mg/dL (0.2-1.0); CRP High Sensitivity 0.64 mg/dL (< 0.3); Total Protein 6.5 g/dL (6.4-8.2)
[2020-08-06] MEDS: ALBUTEROL SULF 2.5 MG/0.5ML(0.5%) NEB SOLN NEB PRN (07:10)
[2020-08-06] MEDS: BUDESONIDE (INHALATION) 0.5 MG/2 ML NEB NEB SCH ×2 (07:10→22:00)
[2020-08-06] MEDS: PANTOPRAZOLE 40 MG/10 ML VIAL INJ IV SCH (10:20)
[2020-08-06] MEDS: LINEZOLID 600MG/300ML 300 ML IV SCH ×2 (10:20→22:00)
[2020-08-06] MEDS: ENOXAPARIN SOD 80 MG/0.8ML SYRINGE SC SCH ×2 (10:20→22:00)
[2020-08-06] MEDS: ZINC SULFATE 220mg CAP or TAB PO SCH (10:20)
[2020-08-06] MEDS: ASCORBIC ACID 1,000 MG TAB PO SCH (10:20)
[2020-08-06] MEDS: CHOLECALCIFEROL (VITD3) 2,000 UNIT CAP/TAB PO SCH (10:20)
[2020-08-06] MEDS: FLUCONAZOLE 200MG/100ML 100 ML IV SCH (10:20)
[2020-08-06] MEDS: DexAMETHasone SOD PHOS 10MG/1ML VIAL INJ IV SCH ×2 (10:20→22:00)
[2020-08-06] MEDS: ACCU-CHEK COMFORT CURVE STRIP VI SCH ×2 (18:00)
[2020-08-06] MEDS: NOREPINEPHRINE 8 MG/250ML KIT 250 ML IV SCH (22:15)
[2020-08-07] VITALS (98 sets, daily range): BP systolic 83–164; BP diastolic 49–89
[2020-08-07] MEDS: PROPOFOL 100 ML IV SCH ×5 (04:16→23:54)
[2020-08-07] MEDS: MIDAZOLAM DRIP 50 mg/50mL 50 ML IV SCH ×3 (04:22→20:39)
[2020-08-07] MEDS: METOCLOPRAMIDE HCL 5MG/ml INJ 2ml VIAL IV SCH ×3 (05:01→22:16)
[2020-08-07] MEDS: PIPERACILLIN-TAZOB 3.375GM 100 ML IV SCH ×3 (05:02→22:16)
[2020-08-07] MEDS: FUROSEMIDE 20 MG/2 ML VIAL IV SCH ×3 (05:09→06:53)
[2020-08-07] MEDS: InsuLIN REG 1unit/0.01ml Soln (100units/ml) SC SCH ×4 (06:00→18:00)
[2020-08-07] MEDS: ACCU-CHEK COMFORT CURVE STRIP VI SCH ×5 (06:00→19:17)
[2020-08-07] MEDS: BUDESONIDE (INHALATION) 0.5 MG/2 ML NEB NEB SCH ×2 (07:00→19:01)
[2020-08-07] MEDS: ALBUTEROL SULF 2.5 MG/0.5ML(0.5%) NEB SOLN NEB PRN ×2 (07:00→19:01)
[2020-08-07] MEDS: DOPamine 1600MCG/ML D5W 250 ML IV SCH (07:41)
[2020-08-07] MEDS: DexAMETHasone SOD PHOS 10MG/1ML VIAL INJ IV SCH ×2 (08:48→22:16)
[2020-08-07] MEDS: PANTOPRAZOLE 40 MG/10 ML VIAL INJ IV SCH (08:49)
[2020-08-07] MEDS: FLUCONAZOLE 200MG/100ML 100 ML IV SCH (08:49)
[2020-08-07] MEDS: ZINC SULFATE 220mg CAP or TAB PO SCH (08:54)
[2020-08-07] MEDS: CHOLECALCIFEROL (VITD3) 2,000 UNIT CAP/TAB PO SCH (08:55)
[2020-08-07] MEDS: ENOXAPARIN SOD 80 MG/0.8ML SYRINGE SC SCH (08:55)
[2020-08-07] MEDS: ASCORBIC ACID 1,000 MG TAB PO SCH (08:55)
[2020-08-07] MEDS: LINEZOLID 600MG/300ML 300 ML IV SCH ×2 (11:22→22:17)
[2020-08-07] MEDS ORDERED: SENNA 8.6 MG TAB PO ONE (14:30)
[2020-08-07] MEDS ORDERED: METOCLOPRAMIDE HCL 5MG/ml INJ 2ml VIAL ONE (14:37)
[2020-08-07] MEDS ORDERED: METOCLOPRAMIDE HCL 5MG/ml INJ 2ml VIAL IV ONE (14:45)
[2020-08-07] MEDS: LACTULOSE 20Gm/30ML SOLN PO SCH (18:00)
[2020-08-07] MEDS: FUROSEMIDE 40 MG/4 ML VIAL IV SCH (18:30)
[2020-08-07] MEDS: NOREPINEPHRINE 8 MG/250ML KIT 250 ML IV SCH (22:15)
[2020-08-07] MEDS: ENOXAPARIN SOD 100 MG/1 ML SYRINGE SC SCH (22:17)
[2020-08-07] MEDS: fentaNYL Drip 2500mCg/250mlNS 250 ML IV SCH (23:56)
[2020-08-08] VITALS (97 sets, daily range): BP systolic 112–170; BP diastolic 57–93
[2020-08-08] MEDS: BUDESONIDE (INHALATION) 0.5 MG/2 ML NEB NEB SCH ×2 (00:32→06:50)
[2020-08-08] MEDS: MIDAZOLAM DRIP 50 mg/50mL 50 ML IV SCH ×6 (02:21→23:00)
[2020-08-08] MEDS: PROPOFOL 100 ML IV SCH ×4 (03:36→21:00)
[2020-08-08 05:05] LABS: Basophils # (auto) 0.1 10 ^3/uL (0-0.2); Basophils % (auto) 0.9 % (0.0-2.0); Eosinophils # (auto) 0 10 ^3/uL (0-0.8); Eosinophils % (auto) 0.1 % (0.0-7.0); Hemoglobin 13.4 g/dL (13.5-17.5); Lymphocytes # (auto) 0.5 10 ^3/uL (0.4-5.4); Lymphocytes % (auto) 6.9 % (10.0-50.0); Mean Corpuscular Hemoglobin 27.7 pg (28.0-32.0); Mean Corpuscular Hgb Conc. 33.5 g/dL (32.0-36.0); Mean Corpuscular Volume 82.7 fL (80.0-100.0); Monocytes # (auto) 0.4 10 ^3/uL (0-1.3); Monocytes % (auto) 5.6 % (0.0-12.0); Neutrophils # (auto) 6.9 10 ^3/uL (1.6-8.6); Neutrophils % (auto) 86.5 % (37.0-80.0); Nucleated Red Blood Cells % 0.1 %; Platelet Count (auto) 337 10^3/uL (140-450); Red Blood Cells 4.83 10^6/uL (4.5-5.90); Red Cell Distribution Width 15.7 % (11.8-14.3)
[2020-08-08 05:20] LABS: BUN/Creatinine Ratio 52.1; Calcium 8.3 mg/dL (8.5-10.1)
[2020-08-08] MEDS: METOCLOPRAMIDE HCL 5MG/ml INJ 2ml VIAL IV SCH ×3 (05:49→22:00)
[2020-08-08] MEDS: FUROSEMIDE 40 MG/4 ML VIAL IV SCH ×2 (05:49→20:00)
[2020-08-08] MEDS: PIPERACILLIN-TAZOB 3.375GM 100 ML IV SCH ×3 (05:49→22:00)
[2020-08-08] MEDS: ACCU-CHEK COMFORT CURVE STRIP VI SCH ×3 (05:50→12:00)
[2020-08-08] MEDS: InsuLIN REG 1unit/0.01ml Soln (100units/ml) SC SCH ×3 (05:50→12:00)
[2020-08-08] MEDS: LACTULOSE 20Gm/30ML SOLN PO SCH ×3 (05:50→12:00)
[2020-08-08] MEDS: ALBUTEROL SULF 2.5 MG/0.5ML(0.5%) NEB SOLN NEB PRN (06:50)
[2020-08-08] MEDS: PANTOPRAZOLE 40 MG/10 ML VIAL INJ IV SCH (10:00)
[2020-08-08] MEDS: FLUCONAZOLE 200MG/100ML 100 ML IV SCH (10:00)
[2020-08-08] MEDS: ZINC SULFATE 220mg CAP or TAB PO SCH (10:00)
[2020-08-08] MEDS: CHOLECALCIFEROL (VITD3) 2,000 UNIT CAP/TAB PO SCH (10:00)
[2020-08-08] MEDS: ENOXAPARIN SOD 100 MG/1 ML SYRINGE SC SCH ×2 (10:00→22:00)
[2020-08-08] MEDS: ASCORBIC ACID 1,000 MG TAB PO SCH (10:00)
[2020-08-08] MEDS: DexAMETHasone SOD PHOS 10MG/1ML VIAL INJ IV SCH ×2 (10:00→22:00)
[2020-08-08] MEDS: LINEZOLID 600MG/300ML 300 ML IV SCH ×2 (11:15→22:00)
[2020-08-08] MEDS: fentaNYL Drip 2500mCg/250mlNS 250 ML IV SCH (20:00)
[2020-08-08] MEDS: NOREPINEPHRINE 8 MG/250ML KIT 250 ML IV SCH (22:15)
[2020-08-09] VITALS (89 sets, daily range): BP systolic 104–146; BP diastolic 53–78
[2020-08-09] MEDS: ALBUTEROL SULF 2.5 MG/0.5ML(0.5%) NEB SOLN NEB PRN ×4 (00:35→22:34)
[2020-08-09] MEDS: PROPOFOL 100 ML IV SCH ×3 (01:50→21:28)
[2020-08-09] MEDS: BUDESONIDE (INHALATION) 0.5 MG/2 ML NEB NEB SCH ×2 (05:52→22:33)
[2020-08-09] MEDS: PIPERACILLIN-TAZOB 3.375GM 100 ML IV SCH ×3 (06:00→21:16)
[2020-08-09] MEDS: FUROSEMIDE 40 MG/4 ML VIAL IV SCH ×2 (06:00→18:00)
[2020-08-09] MEDS: InsuLIN REG 1unit/0.01ml Soln (100units/ml) SC SCH ×4 (06:00→18:00)
[2020-08-09] MEDS: METOCLOPRAMIDE HCL 5MG/ml INJ 2ml VIAL IV SCH ×3 (06:00→21:16)
[2020-08-09] MEDS: LACTULOSE 20Gm/30ML SOLN PO SCH ×4 (06:00→18:00)
[2020-08-09] MEDS: ACCU-CHEK COMFORT CURVE STRIP VI SCH ×4 (06:00→18:00)
[2020-08-09 06:06] LABS: Potassium 3.6 mmol/L (3.5-5.1)
[2020-08-09 06:14] LABS: Calcium 8.2 mg/dL (8.5-10.1)
[2020-08-09] MEDS: MIDAZOLAM DRIP 50 mg/50mL 50 ML IV SCH ×4 (06:46→21:16)
[2020-08-09] MEDS: PANTOPRAZOLE 40 MG/10 ML VIAL INJ IV SCH (08:45)
[2020-08-09] MEDS: ZINC SULFATE 220mg CAP or TAB PO SCH (08:45)
[2020-08-09] MEDS: ASCORBIC ACID 1,000 MG TAB PO SCH (08:45)
[2020-08-09] MEDS: FLUCONAZOLE 200MG/100ML 100 ML IV SCH (08:45)
[2020-08-09] MEDS: DexAMETHasone SOD PHOS 10MG/1ML VIAL INJ IV SCH ×2 (08:45→21:16)
[2020-08-09] MEDS: ENOXAPARIN SOD 100 MG/1 ML SYRINGE SC SCH ×2 (08:46→21:17)
[2020-08-09] MEDS: CHOLECALCIFEROL (VITD3) 2,000 UNIT CAP/TAB PO SCH (08:46)
[2020-08-09] MEDS: LINEZOLID 600MG/300ML 300 ML IV SCH ×2 (09:47→21:16)
[2020-08-09] MEDS: fentaNYL Drip 2500mCg/250mlNS 250 ML IV SCH (15:09)
[2020-08-09 19:52] LABS: INR 1.05 (0.9-1.15); Partial Thromboplastin Time 27.6 sec (23.0-31.2)
[2020-08-10] VITALS (74 sets, daily range): BP systolic 108–146; BP diastolic 60–81
[2020-08-10] MEDS: PROPOFOL 100 ML IV SCH ×2 (01:00→09:26)
[2020-08-10] MEDS: FUROSEMIDE 40 MG/4 ML VIAL IV SCH ×2 (05:28→18:10)
[2020-08-10] MEDS: PIPERACILLIN-TAZOB 3.375GM 100 ML IV SCH ×3 (05:28→21:53)
[2020-08-10] MEDS: METOCLOPRAMIDE HCL 5MG/ml INJ 2ml VIAL IV SCH ×2 (05:28→10:58)
[2020-08-10] MEDS: ACCU-CHEK COMFORT CURVE STRIP VI SCH ×4 (05:29→18:10)
[2020-08-10] MEDS: LACTULOSE 20Gm/30ML SOLN PO SCH ×3 (05:29→07:30)
[2020-08-10] MEDS: InsuLIN REG 1unit/0.01ml Soln (100units/ml) SC SCH ×4 (06:00→18:00)
[2020-08-10] MEDS: BUDESONIDE (INHALATION) 0.5 MG/2 ML NEB NEB SCH ×2 (07:50→18:53)
[2020-08-10] MEDS: ALBUTEROL SULF 2.5 MG/0.5ML(0.5%) NEB SOLN NEB PRN ×2 (07:50→19:50)
[2020-08-10] MEDS: DexAMETHasone SOD PHOS 10MG/1ML VIAL INJ IV SCH ×2 (08:29→21:53)
[2020-08-10] MEDS: CHOLECALCIFEROL (VITD3) 2,000 UNIT CAP/TAB PO SCH (08:30)
[2020-08-10] MEDS: ENOXAPARIN SOD 100 MG/1 ML SYRINGE SC SCH ×2 (08:30→21:53)
[2020-08-10] MEDS: ASCORBIC ACID 1,000 MG TAB PO SCH (08:30)
[2020-08-10] MEDS: ZINC SULFATE 220mg CAP or TAB PO SCH (08:30)
[2020-08-10] MEDS: NOREPINEPHRINE 8 MG/250ML KIT 250 ML IV SCH (08:47)
[2020-08-10] MEDS: LINEZOLID 600MG/300ML 300 ML IV SCH ×2 (08:47→21:53)
[2020-08-10] MEDS: FLUCONAZOLE 200MG/100ML 100 ML IV SCH (09:15)
[2020-08-10] MEDS: PANTOPRAZOLE 40 MG/10 ML VIAL INJ IV SCH (09:15)
[2020-08-10] MEDS: fentaNYL Drip 2500mCg/250mlNS 250 ML IV SCH ×2 (09:20→22:14)
[2020-08-10] MEDS: MIDAZOLAM DRIP 50 mg/50mL 50 ML IV SCH (09:26)
[2020-08-10] MEDS ORDERED: LIDOCAINE 1% (LOCAL ANESTH.) PF 5ml SDV ID ONE (13:15)
[2020-08-10] MEDS: SODIUM CHLOR 0.9% PF (SALINE LOCK) 10ML VIAL/SYR IV SCH (21:53)
[2020-08-11] VITALS (87 sets, daily range): BP systolic 116–151; BP diastolic 64–82
[2020-08-11] MEDS: InsuLIN REG 1unit/0.01ml Soln (100units/ml) SC SCH ×5 (00:11→23:57)
[2020-08-11] MEDS: PROPOFOL 100 ML IV SCH ×5 (01:10→20:20)
[2020-08-11] MEDS: MIDAZOLAM DRIP 50 mg/50mL 50 ML IV SCH ×3 (03:48→15:05)
[2020-08-11] MEDS: PIPERACILLIN-TAZOB 3.375GM 100 ML IV SCH ×3 (05:14→22:00)
[2020-08-11] MEDS: FUROSEMIDE 40 MG/4 ML VIAL IV SCH ×2 (05:14→17:08)
[2020-08-11] MEDS: ACCU-CHEK COMFORT CURVE STRIP VI SCH ×5 (05:28→23:58)
[2020-08-11] MEDS: BUDESONIDE (INHALATION) 0.5 MG/2 ML NEB NEB SCH ×2 (06:24→22:15)
[2020-08-11] MEDS: ALBUTEROL SULF 2.5 MG/0.5ML(0.5%) NEB SOLN NEB PRN ×2 (06:25→22:15)
[2020-08-11 07:59] LABS: Albumin 2.7 g/dL (3.4-5.0); Potassium 3.5 mmol/L (3.5-5.1)
[2020-08-11 08:03] LABS: BUN/Creatinine Ratio 45.3; Bilirubin, Total 0.8 mg/dL (0.2-1.0); Total Protein 6.4 g/dL (6.4-8.2)
[2020-08-11] MEDS: LINEZOLID 600MG/300ML 300 ML IV SCH ×2 (09:20→20:19)
[2020-08-11] MEDS: ENOXAPARIN SOD 100 MG/1 ML SYRINGE SC SCH ×2 (09:20→22:00)
[2020-08-11] MEDS: ZINC SULFATE 220mg CAP or TAB PO SCH (09:20)
[2020-08-11] MEDS: DexAMETHasone SOD PHOS 10MG/1ML VIAL INJ IV SCH ×2 (09:20→22:00)
[2020-08-11] MEDS: CHOLECALCIFEROL (VITD3) 2,000 UNIT CAP/TAB PO SCH (09:21)
[2020-08-11] MEDS: ASCORBIC ACID 1,000 MG TAB PO SCH (09:21)
[2020-08-11] MEDS: PANTOPRAZOLE 40 MG/10 ML VIAL INJ IV SCH (10:00)
[2020-08-11] MEDS: FLUCONAZOLE 200MG/100ML 100 ML IV SCH (10:00)
[2020-08-11] MEDS: SODIUM CHLOR 0.9% PF (SALINE LOCK) 10ML VIAL/SYR IV SCH ×2 (10:20→22:00)
[2020-08-11] MEDS: fentaNYL Drip 2500mCg/250mlNS 250 ML IV SCH ×2 (10:32→21:00)
[2020-08-11] MEDS: NOREPINEPHRINE 8 MG/250ML KIT 250 ML IV SCH (22:15)
[2020-08-12] VITALS (98 sets, daily range): BP systolic 93–148; BP diastolic 53–88
[2020-08-12 03:57] LABS: Basophils # (auto) 0 10 ^3/uL (0-0.2); Basophils % (auto) 0.2 % (0.0-2.0); Eosinophils # (auto) 0 10 ^3/uL (0-0.8); Hematocrit 40.2 % (41.0-53.0); Hemoglobin 13.5 g/dL (13.5-17.5); Lymphocytes # (auto) 0.5 10 ^3/uL (0.4-5.4); Lymphocytes % (auto) 5.7 % (10.0-50.0); Mean Corpuscular Hemoglobin 28.1 pg (28.0-32.0); Mean Corpuscular Hgb Conc. 33.6 g/dL (32.0-36.0); Mean Corpuscular Volume 83.5 fL (80.0-100.0); Monocytes # (auto) 0.7 10 ^3/uL (0-1.3); Monocytes % (auto) 7.5 % (0.0-12.0); Neutrophils % (auto) 86.6 % (37.0-80.0); Nucleated Red Blood Cells % 0.1 %; Platelet Count (auto) 255 10^3/uL (140-450); Red Blood Cells 4.81 10^6/uL (4.5-5.90); Red Cell Distribution Width 15.3 % (11.8-14.3); White Blood Cell 9.2 10^3/uL (4.4-10.8)
[2020-08-12 04:18] LABS: BUN/Creatinine Ratio 38.6; Calcium 8.2 mg/dL (8.5-10.1); Potassium 3.1 mmol/L (3.5-5.1)
[2020-08-12] MEDS: PIPERACILLIN-TAZOB 3.375GM 100 ML IV SCH ×3 (06:00→22:10)
[2020-08-12] MEDS: InsuLIN REG 1unit/0.01ml Soln (100units/ml) SC SCH ×3 (06:00→17:06)
[2020-08-12] MEDS: ACCU-CHEK COMFORT CURVE STRIP VI SCH ×3 (06:00→17:06)
[2020-08-12] MEDS: FUROSEMIDE 40 MG/4 ML VIAL IV SCH ×2 (06:00→17:07)
[2020-08-12] MEDS: ALBUTEROL SULF 2.5 MG/0.5ML(0.5%) NEB SOLN NEB PRN (07:00)
[2020-08-12] MEDS: BUDESONIDE (INHALATION) 0.5 MG/2 ML NEB NEB SCH ×2 (07:00→22:00)
[2020-08-12] MEDS: PROPOFOL 100 ML IV SCH ×4 (07:30→18:59)
[2020-08-12] MEDS: DexAMETHasone SOD PHOS 10MG/1ML VIAL INJ IV SCH ×2 (09:09→22:10)
[2020-08-12] MEDS: PANTOPRAZOLE 40 MG/10 ML VIAL INJ IV SCH (09:09)
[2020-08-12] MEDS: CHOLECALCIFEROL (VITD3) 2,000 UNIT CAP/TAB PO SCH (09:10)
[2020-08-12] MEDS: SODIUM CHLOR 0.9% PF (SALINE LOCK) 10ML VIAL/SYR IV SCH ×2 (09:10→22:10)
[2020-08-12] MEDS: ENOXAPARIN SOD 100 MG/1 ML SYRINGE SC SCH ×2 (09:10→22:10)
[2020-08-12] MEDS: ASCORBIC ACID 1,000 MG TAB PO SCH (09:10)
[2020-08-12] MEDS: ZINC SULFATE 220mg CAP or TAB PO SCH (09:10)
[2020-08-12] MEDS: LINEZOLID 600MG/300ML 300 ML IV SCH ×2 (09:39→22:10)
[2020-08-12] MEDS: FLUCONAZOLE 200MG/100ML 100 ML IV SCH (11:54)
[2020-08-12] MEDS ORDERED: FAMOTIDINE INJECTION 40 MG in SODIUM CHL 0.9% 100 ML IV ONE (12:45)
[2020-08-12] MEDS ORDERED: POTASSIUM EFFERVESENT TAB 25 MEQ GT ONE (13:00)
[2020-08-12] MEDS ORDERED: PANTOPRAZOLE 40 MG/10 ML VIAL INJ IV ONE (13:15)
[2020-08-12] MEDS: MIDAZOLAM DRIP 50 mg/50mL 50 ML IV SCH ×2 (13:30→18:59)
[2020-08-12] MEDS: fentaNYL Drip 2500mCg/250mlNS 250 ML IV SCH (13:39)
[2020-08-12] MEDS: ERGOCALCIFEROL 50,000 UNIT(1.25MG) CAP PO SCH (15:17)
[2020-08-12] MEDS: POTASSIUM EFFERVESENT TAB 25 MEQ GT SCH (22:10)
[2020-08-12] MEDS: NOREPINEPHRINE 8 MG/250ML KIT 250 ML IV SCH (22:15)
[2020-08-13] VITALS (97 sets, daily range): BP systolic 108–153; BP diastolic 62–93
[2020-08-13] MEDS: fentaNYL Drip 2500mCg/250mlNS 250 ML IV SCH ×2 (01:31→15:17)
[2020-08-13] MEDS: InsuLIN REG 1unit/0.01ml Soln (100units/ml) SC SCH ×4 (06:00→17:17)
[2020-08-13] MEDS: FUROSEMIDE 40 MG/4 ML VIAL IV SCH ×2 (06:00→17:16)
[2020-08-13] MEDS: PIPERACILLIN-TAZOB 3.375GM 100 ML IV SCH ×3 (06:00→22:00)
[2020-08-13] MEDS: ACCU-CHEK COMFORT CURVE STRIP VI SCH ×4 (06:00→17:10)
[2020-08-13] MEDS: BUDESONIDE (INHALATION) 0.5 MG/2 ML NEB NEB SCH ×2 (06:11→22:20)
[2020-08-13] MEDS: ALBUTEROL SULF 2.5 MG/0.5ML(0.5%) NEB SOLN NEB PRN ×2 (06:12→22:20)
[2020-08-13] MEDS: MIDAZOLAM DRIP 50 mg/50mL 50 ML IV SCH ×3 (07:10→15:38)
[2020-08-13] MEDS: DexAMETHasone SOD PHOS 10MG/1ML VIAL INJ IV SCH ×2 (09:30→22:00)
[2020-08-13] MEDS: POTASSIUM EFFERVESENT TAB 25 MEQ GT SCH ×2 (09:30→22:00)
[2020-08-13] MEDS: FLUCONAZOLE 200MG/100ML 100 ML IV SCH (09:30)
[2020-08-13] MEDS: PANTOPRAZOLE 40 MG/10 ML VIAL INJ IV SCH (09:30)
[2020-08-13] MEDS: ASCORBIC ACID 1,000 MG TAB PO SCH (09:31)
[2020-08-13] MEDS: CHOLECALCIFEROL (VITD3) 2,000 UNIT CAP/TAB PO SCH (09:31)
[2020-08-13] MEDS: ENOXAPARIN SOD 100 MG/1 ML SYRINGE SC SCH ×2 (09:31→22:00)
[2020-08-13] MEDS: ZINC SULFATE 220mg CAP or TAB PO SCH (09:31)
[2020-08-13] MEDS: SODIUM CHLOR 0.9% PF (SALINE LOCK) 10ML VIAL/SYR IV SCH ×2 (09:31→22:00)
[2020-08-13] MEDS ORDERED: FAMOTIDINE INJECTION 40 MG in SODIUM CHL 0.9% 100 ML IV SCH (10:00)
[2020-08-13] MEDS: LINEZOLID 600MG/300ML 300 ML IV SCH ×2 (10:45→22:00)
[2020-08-13 11:46] LABS: Basophils # (auto) 0 10 ^3/uL (0-0.2); Basophils % (auto) 0.3 % (0.0-2.0); Eosinophils # (auto) 0 10 ^3/uL (0-0.8); Hematocrit 39.8 % (41.0-53.0); Hemoglobin 13.2 g/dL (13.5-17.5); Lymphocytes # (auto) 0.7 10 ^3/uL (0.4-5.4); Mean Corpuscular Hemoglobin 27.6 pg (28.0-32.0); Mean Corpuscular Hgb Conc. 33.2 g/dL (32.0-36.0); Mean Corpuscular Volume 83.2 fL (80.0-100.0); Monocytes # (auto) 0.5 10 ^3/uL (0-1.3); Monocytes % (auto) 4.6 % (0.0-12.0); Neutrophils % (auto) 89.1 % (37.0-80.0); Nucleated Red Blood Cells % 0.1 %; Platelet Count (auto) 240 10^3/uL (140-450); Red Blood Cells 4.78 10^6/uL (4.5-5.90); Red Cell Distribution Width 15.6 % (11.8-14.3); White Blood Cell 11.2 10^3/uL (4.4-10.8)
[2020-08-13] MEDS: PROPOFOL 100 ML IV SCH ×3 (11:50→15:16)
[2020-08-13 11:59] LABS: BUN/Creatinine Ratio 46.7; Calcium 8.3 mg/dL (8.5-10.1)
[2020-08-13] MEDS: NOREPINEPHRINE 8 MG/250ML KIT 250 ML IV SCH (22:15)
[2020-08-14] VITALS (85 sets, daily range): BP systolic 105–146; BP diastolic 64–96
[2020-08-14] MEDS: InsuLIN REG 1unit/0.01ml Soln (100units/ml) SC SCH ×5 (00:10→23:22)
[2020-08-14] MEDS: ACCU-CHEK COMFORT CURVE STRIP VI SCH ×5 (00:18→23:22)
[2020-08-14] MEDS: PROPOFOL 100 ML IV SCH ×5 (02:49→18:15)
[2020-08-14] MEDS: MIDAZOLAM DRIP 50 mg/50mL 50 ML IV SCH ×3 (02:50→14:48)
[2020-08-14] MEDS: fentaNYL Drip 2500mCg/250mlNS 250 ML IV SCH ×2 (02:50→16:33)
[2020-08-14 05:06] LABS: Basophils # (auto) 0 10 ^3/uL (0-0.2); Eosinophils # (auto) 0 10 ^3/uL (0-0.8); Eosinophils % (auto) 0.1 % (0.0-7.0); Hematocrit 42.4 % (41.0-53.0); Hemoglobin 14.1 g/dL (13.5-17.5); Lymphocytes # (auto) 0.7 10 ^3/uL (0.4-5.4); Lymphocytes % (auto) 5.8 % (10.0-50.0); Mean Corpuscular Hgb Conc. 33.2 g/dL (32.0-36.0); Mean Corpuscular Volume 84.4 fL (80.0-100.0); Monocytes # (auto) 0.7 10 ^3/uL (0-1.3); Monocytes % (auto) 6.3 % (0.0-12.0); Neutrophils # (auto) 9.9 10 ^3/uL (1.6-8.6); Neutrophils % (auto) 87.8 % (37.0-80.0); Nucleated Red Blood Cells % 0.1 %; Platelet Count (auto) 242 10^3/uL (140-450); Red Blood Cells 5.02 10^6/uL (4.5-5.90); Red Cell Distribution Width 15.4 % (11.8-14.3); White Blood Cell 11.3 10^3/uL (4.4-10.8)
[2020-08-14 05:38] LABS: Calcium 8.7 mg/dL (8.5-10.1); Potassium 3.8 mmol/L (3.5-5.1)
[2020-08-14 05:41] LABS: Albumin 2.8 g/dL (3.4-5.0); BUN/Creatinine Ratio 43.9
[2020-08-14 05:44] LABS: Bilirubin, Total 0.7 mg/dL (0.2-1.0); Total Protein 6.5 g/dL (6.4-8.2)
[2020-08-14] MEDS: FUROSEMIDE 40 MG/4 ML VIAL IV SCH ×2 (06:00→17:02)
[2020-08-14] MEDS: PIPERACILLIN-TAZOB 3.375GM 100 ML IV SCH ×3 (06:00→22:00)
[2020-08-14] MEDS: BUDESONIDE (INHALATION) 0.5 MG/2 ML NEB NEB SCH ×2 (06:28→22:00)
[2020-08-14] MEDS: ALBUTEROL SULF 2.5 MG/0.5ML(0.5%) NEB SOLN NEB PRN ×2 (06:28→22:31)
[2020-08-14] MEDS: ASCORBIC ACID 1,000 MG TAB PO SCH (09:19)
[2020-08-14] MEDS: FLUCONAZOLE 200MG/100ML 100 ML IV SCH (09:19)
[2020-08-14] MEDS: CHOLECALCIFEROL (VITD3) 2,000 UNIT CAP/TAB PO SCH (09:19)
[2020-08-14] MEDS: DexAMETHasone SOD PHOS 10MG/1ML VIAL INJ IV SCH ×2 (09:19→22:00)
[2020-08-14] MEDS: PANTOPRAZOLE 40 MG/10 ML VIAL INJ IV SCH (09:19)
[2020-08-14] MEDS: SODIUM CHLOR 0.9% PF (SALINE LOCK) 10ML VIAL/SYR IV SCH ×2 (09:19→22:00)
[2020-08-14] MEDS: ZINC SULFATE 220mg CAP or TAB PO SCH (09:19)
[2020-08-14] MEDS: POTASSIUM EFFERVESENT TAB 25 MEQ GT SCH ×2 (09:19→22:00)
[2020-08-14] MEDS: ENOXAPARIN SOD 100 MG/1 ML SYRINGE SC SCH (09:20)
[2020-08-14] MEDS: LINEZOLID 600MG/300ML 300 ML IV SCH ×2 (10:16→22:00)
[2020-08-14] MEDS: ENOXAPARIN SOD 80 MG/0.8ML SYRINGE SC SCH (22:00)
[2020-08-14] MEDS: NOREPINEPHRINE 8 MG/250ML KIT 250 ML IV SCH (22:15)
[2020-08-15] VITALS (78 sets, daily range): BP systolic 97–135; BP diastolic 62–92
[2020-08-15 04:18] LABS: Basophils # (auto) 0 10 ^3/uL (0-0.2); Basophils % (auto) 0.3 % (0.0-2.0); Eosinophils # (auto) 0.1 10 ^3/uL (0-0.8); Eosinophils % (auto) 0.6 % (0.0-7.0); Hematocrit 36.4 % (41.0-53.0); Hemoglobin 12.8 g/dL (13.5-17.5); Lymphocytes # (auto) 1.1 10 ^3/uL (0.4-5.4); Lymphocytes % (auto) 8.9 % (10.0-50.0); Mean Corpuscular Hemoglobin 29.7 pg (28.0-32.0); Mean Corpuscular Hgb Conc. 35.2 g/dL (32.0-36.0); Mean Corpuscular Volume 84.3 fL (80.0-100.0); Monocytes # (auto) 1.1 10 ^3/uL (0-1.3); Monocytes % (auto) 8.9 % (0.0-12.0); Neutrophils % (auto) 81.3 % (37.0-80.0); Nucleated Red Blood Cells % 0.1 %; Platelet Count (auto) 221 10^3/uL (140-450); Red Blood Cells 4.32 10^6/uL (4.5-5.90); Red Cell Distribution Width 15.4 % (11.8-14.3); White Blood Cell 12.3 10^3/uL (4.4-10.8)
[2020-08-15 04:42] LABS: Calcium 6.7 mg/dL (8.5-10.1); Potassium 3.7 mmol/L (3.5-5.1)
[2020-08-15 04:53] LABS: BUN/Creatinine Ratio 44.9
[2020-08-15] MEDS: InsuLIN REG 1unit/0.01ml Soln (100units/ml) SC SCH ×3 (06:00→18:00)
[2020-08-15] MEDS: PIPERACILLIN-TAZOB 3.375GM 100 ML IV SCH ×3 (06:04→22:45)
[2020-08-15] MEDS: ACCU-CHEK COMFORT CURVE STRIP VI SCH ×3 (06:04→18:00)
[2020-08-15] MEDS: FUROSEMIDE 40 MG/4 ML VIAL IV SCH (06:05)
[2020-08-15] MEDS: BUDESONIDE (INHALATION) 0.5 MG/2 ML NEB NEB SCH ×2 (06:06→18:11)
[2020-08-15] MEDS: PROPOFOL 100 ML IV SCH (09:39)
[2020-08-15] MEDS: FLUCONAZOLE 200MG/100ML 100 ML IV SCH (09:40)
[2020-08-15] MEDS: MIDAZOLAM DRIP 50 mg/50mL 50 ML IV SCH (09:40)
[2020-08-15] MEDS: ASCORBIC ACID 1,000 MG TAB PO SCH (10:00)
[2020-08-15] MEDS: SODIUM CHLOR 0.9% PF (SALINE LOCK) 10ML VIAL/SYR IV SCH ×2 (10:00→22:44)
[2020-08-15] MEDS: DexAMETHasone SOD PHOS 10MG/1ML VIAL INJ IV SCH ×2 (10:00→22:44)
[2020-08-15] MEDS: ENOXAPARIN SOD 80 MG/0.8ML SYRINGE SC SCH ×2 (10:00→22:45)
[2020-08-15] MEDS: ZINC SULFATE 220mg CAP or TAB PO SCH (10:00)
[2020-08-15] MEDS: CHOLECALCIFEROL (VITD3) 2,000 UNIT CAP/TAB PO SCH (10:00)
[2020-08-15] MEDS: LINEZOLID 600MG/300ML 300 ML IV SCH ×2 (10:00→22:00)
[2020-08-15] MEDS: PANTOPRAZOLE 40 MG/10 ML VIAL INJ IV SCH (10:00)
[2020-08-15] MEDS: POTASSIUM EFFERVESENT TAB 25 MEQ GT SCH ×2 (10:00→22:44)
[2020-08-15] MEDS: FUROSEMIDE 20 MG/2 ML VIAL IV SCH (18:00)
[2020-08-15] MEDS: ALBUTEROL SULF 2.5 MG/0.5ML(0.5%) NEB SOLN NEB PRN (18:11)
[2020-08-15] MEDS: fentaNYL Drip 2500mCg/250mlNS 250 ML IV SCH (18:32)
[2020-08-15] MEDS: NOREPINEPHRINE 8 MG/250ML KIT 250 ML IV SCH (22:15)
[2020-08-16] VITALS (84 sets, daily range): BP systolic 93–164; BP diastolic 51–84
[2020-08-16 04:58] LABS: Basophils # (auto) 0 10 ^3/uL (0-0.2); Basophils % (auto) 0.1 % (0.0-2.0); Eosinophils # (auto) 0 10 ^3/uL (0-0.8); Eosinophils % (auto) 0.3 % (0.0-7.0); Hemoglobin 12.8 g/dL (13.5-17.5); Lymphocytes # (auto) 0.4 10 ^3/uL (0.4-5.4); Lymphocytes % (auto) 2.6 % (10.0-50.0); Mean Corpuscular Hemoglobin 27.6 pg (28.0-32.0); Mean Corpuscular Hgb Conc. 32.8 g/dL (32.0-36.0); Mean Corpuscular Volume 84.3 fL (80.0-100.0); Monocytes # (auto) 0.4 10 ^3/uL (0-1.3); Monocytes % (auto) 2.7 % (0.0-12.0); Neutrophils # (auto) 12.7 10 ^3/uL (1.6-8.6); Neutrophils % (auto) 94.3 % (37.0-80.0); Platelet Count (auto) 199 10^3/uL (140-450); Red Blood Cells 4.62 10^6/uL (4.5-5.90); White Blood Cell 13.5 10^3/uL (4.4-10.8)
[2020-08-16 05:13] LABS: Potassium 4.1 mmol/L (3.5-5.1)
[2020-08-16 05:23] LABS: BUN/Creatinine Ratio 45.4; Calcium 8.6 mg/dL (8.5-10.1)
[2020-08-16] MEDS: FUROSEMIDE 20 MG/2 ML VIAL IV SCH (05:43)
[2020-08-16] MEDS: PIPERACILLIN-TAZOB 3.375GM 100 ML IV SCH ×3 (05:43→22:52)
[2020-08-16] MEDS: ACCU-CHEK COMFORT CURVE STRIP VI SCH ×4 (06:00→18:11)
[2020-08-16] MEDS: InsuLIN REG 1unit/0.01ml Soln (100units/ml) SC SCH ×4 (06:02→18:11)
[2020-08-16] MEDS: BUDESONIDE (INHALATION) 0.5 MG/2 ML NEB NEB SCH ×3 (07:52→19:48)
[2020-08-16] MEDS: PROPOFOL 100 ML IV SCH (08:59)
[2020-08-16] MEDS: ZINC SULFATE 220mg CAP or TAB PO SCH ×2 (10:00→10:08)
[2020-08-16] MEDS: CHOLECALCIFEROL (VITD3) 2,000 UNIT CAP/TAB PO SCH ×2 (10:00→10:08)
[2020-08-16] MEDS: POTASSIUM EFFERVESENT TAB 25 MEQ GT SCH ×2 (10:00→10:07)
[2020-08-16] MEDS: ASCORBIC ACID 1,000 MG TAB PO SCH ×2 (10:00→10:08)
[2020-08-16] MEDS: ENOXAPARIN SOD 80 MG/0.8ML SYRINGE SC SCH ×2 (10:00→22:52)
[2020-08-16] MEDS: PANTOPRAZOLE 40 MG/10 ML VIAL INJ IV SCH (10:07)
[2020-08-16] MEDS: DexAMETHasone SOD PHOS 10MG/1ML VIAL INJ IV SCH ×2 (10:07→22:41)
[2020-08-16] MEDS: FLUCONAZOLE 200MG/100ML 100 ML IV SCH (10:08)
[2020-08-16] MEDS: SODIUM CHLOR 0.9% PF (SALINE LOCK) 10ML VIAL/SYR IV SCH ×2 (10:08→22:52)
[2020-08-16] MEDS: LINEZOLID 600MG/300ML 300 ML IV SCH ×2 (10:08→22:00)
[2020-08-16] MEDS: fentaNYL Drip 2500mCg/250mlNS 250 ML IV SCH (17:00)
[2020-08-16] MEDS: ALBUTEROL SULF 2.5 MG/0.5ML(0.5%) NEB SOLN NEB PRN (19:48)
[2020-08-16] MEDS: MIDAZOLAM DRIP 50 mg/50mL 50 ML IV SCH (22:15)
[2020-08-16] MEDS: NOREPINEPHRINE 8 MG/250ML KIT 250 ML IV SCH (22:15)
[2020-08-17] VITALS (52 sets, daily range): BP systolic 117–192; BP diastolic 62–102
[2020-08-17] MEDS: ACCU-CHEK COMFORT CURVE STRIP VI SCH ×4 (00:20→18:00)
[2020-08-17] MEDS: InsuLIN REG 1unit/0.01ml Soln (100units/ml) SC SCH ×4 (00:20→18:00)
[2020-08-17] MEDS: LINEZOLID 600MG/300ML 300 ML IV SCH ×2 (01:00→11:00)
[2020-08-17 04:30] LABS: Basophils # (auto) 0 10 ^3/uL (0-0.2); Basophils % (auto) 0.3 % (0.0-2.0); Eosinophils # (auto) 0 10 ^3/uL (0-0.8); Hematocrit 30.1 % (41.0-53.0); Hemoglobin 10.8 g/dL (13.5-17.5); Lymphocytes # (auto) 0.4 10 ^3/uL (0.4-5.4); Lymphocytes % (auto) 5.8 % (10.0-50.0); Mean Corpuscular Hemoglobin 31.2 pg (28.0-32.0); Mean Corpuscular Hgb Conc. 35.7 g/dL (32.0-36.0); Mean Corpuscular Volume 87.3 fL (80.0-100.0); Monocytes # (auto) 0.3 10 ^3/uL (0-1.3); Monocytes % (auto) 4.2 % (0.0-12.0); Neutrophils # (auto) 6.4 10 ^3/uL (1.6-8.6); Neutrophils % (auto) 89.7 % (37.0-80.0); Platelet Count (auto) 168 10^3/uL (140-450); Red Blood Cells 3.45 10^6/uL (4.5-5.90); Red Cell Distribution Width 15.8 % (11.8-14.3); White Blood Cell 7.1 10^3/uL (4.4-10.8)
[2020-08-17] MEDS: PIPERACILLIN-TAZOB 3.375GM 100 ML IV SCH ×2 (06:05→14:00)
[2020-08-17] MEDS: ALBUTEROL SULF 2.5 MG/0.5ML(0.5%) NEB SOLN NEB PRN ×2 (07:40→19:08)
[2020-08-17] MEDS: BUDESONIDE (INHALATION) 0.5 MG/2 ML NEB NEB SCH ×2 (07:40→19:07)
[2020-08-17 08:37] LABS: BUN/Creatinine Ratio 53.1; Potassium 3.6 mmol/L (3.5-5.1)
[2020-08-17] MEDS: ENOXAPARIN SOD 80 MG/0.8ML SYRINGE SC SCH (10:00)
[2020-08-17] MEDS: ASCORBIC ACID 1,000 MG TAB PO SCH (10:00)
[2020-08-17] MEDS: FLUCONAZOLE 200MG/100ML 100 ML IV SCH (10:00)
[2020-08-17] MEDS: SODIUM CHLOR 0.9% PF (SALINE LOCK) 10ML VIAL/SYR IV SCH (10:00)
[2020-08-17] MEDS: PANTOPRAZOLE 40 MG/10 ML VIAL INJ IV SCH (10:00)
[2020-08-17] MEDS: CHOLECALCIFEROL (VITD3) 2,000 UNIT CAP/TAB PO SCH (10:00)
[2020-08-17] MEDS: DexAMETHasone SOD PHOS 10MG/1ML VIAL INJ IV SCH (10:00)
[2020-08-17] MEDS: ZINC SULFATE 220mg CAP or TAB PO SCH (10:00)
[2020-08-17] MEDS ORDERED: Jevity 1.2 Cal/Fiber 1 Liter GT SCH (15:30)
[2020-08-17] MEDS ORDERED: LISINOPRIL 10 MG TAB PO ONE (15:45)
[2020-08-17] MEDS ORDERED: hydrALAZINE HCL 20 MG/ML VL IV PRN (15:45)
[2020-08-17] MEDS: fentaNYL Drip 2500mCg/250mlNS 250 ML IV SCH (16:46)
[2020-08-17] MEDS: NOREPINEPHRINE 8 MG/250ML KIT 250 ML IV SCH (22:15)
[2020-08-17] MEDS: PROPOFOL 100 ML IV SCH (22:15)
[2020-08-17] MEDS: MIDAZOLAM DRIP 50 mg/50mL 50 ML IV SCH (22:15)
[2020-08-18] VITALS (57 sets, daily range): BP systolic 86–152; BP diastolic 45–93
[2020-08-18] MEDS: DexAMETHasone SOD PHOS 10MG/1ML VIAL INJ IV SCH ×3 (00:43→22:56)
[2020-08-18] MEDS: PIPERACILLIN-TAZOB 3.375GM 100 ML IV SCH ×4 (00:44→22:56)
[2020-08-18] MEDS: SODIUM CHLOR 0.9% PF (SALINE LOCK) 10ML VIAL/SYR IV SCH ×3 (00:44→22:56)
[2020-08-18] MEDS: ENOXAPARIN SOD 80 MG/0.8ML SYRINGE SC SCH ×3 (00:44→22:56)
[2020-08-18] MEDS: ACCU-CHEK COMFORT CURVE STRIP VI SCH ×4 (00:46→18:00)
[2020-08-18 05:44] LABS: Potassium 3.4 mmol/L (3.5-5.1)
[2020-08-18] MEDS: InsuLIN REG 1unit/0.01ml Soln (100units/ml) SC SCH ×4 (06:00→18:00)
[2020-08-18 06:24] LABS: Calcium 8.4 mg/dL (8.5-10.1)
[2020-08-18] MEDS: ALBUTEROL SULF 2.5 MG/0.5ML(0.5%) NEB SOLN NEB PRN ×2 (06:50→18:49)
[2020-08-18] MEDS: BUDESONIDE (INHALATION) 0.5 MG/2 ML NEB NEB SCH ×2 (06:50→18:50)
[2020-08-18] MEDS: PROPOFOL 100 ML IV SCH (08:00)
[2020-08-18] MEDS: FLUCONAZOLE 200MG/100ML 100 ML IV SCH (09:45)
[2020-08-18] MEDS: PANTOPRAZOLE 40 MG/10 ML VIAL INJ IV SCH (10:00)
[2020-08-18] MEDS: CHOLECALCIFEROL (VITD3) 2,000 UNIT CAP/TAB PO SCH (10:00)
[2020-08-18] MEDS ORDERED: LISINOPRIL 10 MG TAB PO SCH (10:00)
[2020-08-18] MEDS: ZINC SULFATE 220mg CAP or TAB PO SCH (10:00)
[2020-08-18] MEDS: ASCORBIC ACID 1,000 MG TAB PO SCH (10:00)
[2020-08-18] MEDS ORDERED: POTASSIUM EFFERVESENT TAB 25 MEQ GT ONE (12:30)
[2020-08-18] MEDS: fentaNYL Drip 2500mCg/250mlNS 250 ML IV SCH (18:10)
[2020-08-18] MEDS: MIDAZOLAM DRIP 50 mg/50mL 50 ML IV SCH (22:15)
[2020-08-18] MEDS: NOREPINEPHRINE 8 MG/250ML KIT 250 ML IV SCH (22:15)
[2020-08-19] VITALS (72 sets, daily range): BP systolic 90–157; BP diastolic 40–89
[2020-08-19] MEDS: InsuLIN REG 1unit/0.01ml Soln (100units/ml) SC SCH ×4 (06:00→18:00)
[2020-08-19] MEDS: ACCU-CHEK COMFORT CURVE STRIP VI SCH ×4 (06:29→18:00)
[2020-08-19] MEDS: PIPERACILLIN-TAZOB 3.375GM 100 ML IV SCH ×3 (06:29→22:00)
[2020-08-19] MEDS: ALBUTEROL SULF 2.5 MG/0.5ML(0.5%) NEB SOLN NEB PRN ×2 (07:08→19:24)
[2020-08-19] MEDS: BUDESONIDE (INHALATION) 0.5 MG/2 ML NEB NEB SCH ×2 (07:08→19:24)
[2020-08-19 08:39] LABS: Basophils # (auto) 0 10 ^3/uL (0-0.2); Basophils % (auto) 0.2 % (0.0-2.0); Eosinophils # (auto) 0 10 ^3/uL (0-0.8); Eosinophils % (auto) 0.2 % (0.0-7.0); Hematocrit 28.6 % (41.0-53.0); Hemoglobin 9.6 g/dL (13.5-17.5); Lymphocytes # (auto) 0.8 10 ^3/uL (0.4-5.4); Lymphocytes % (auto) 12.1 % (10.0-50.0); Mean Corpuscular Hemoglobin 28.3 pg (28.0-32.0); Mean Corpuscular Hgb Conc. 33.4 g/dL (32.0-36.0); Mean Corpuscular Volume 84.5 fL (80.0-100.0); Monocytes # (auto) 0.6 10 ^3/uL (0-1.3); Monocytes % (auto) 9.5 % (0.0-12.0); Neutrophils # (auto) 5.1 10 ^3/uL (1.6-8.6); Platelet Count (auto) 187 10^3/uL (140-450); Red Blood Cells 3.38 10^6/uL (4.5-5.90); Red Cell Distribution Width 15.7 % (11.8-14.3); White Blood Cell 6.6 10^3/uL (4.4-10.8)
[2020-08-19 08:42] LABS: Calcium 7.4 mg/dL (8.5-10.1)
[2020-08-19 08:45] LABS: BUN/Creatinine Ratio 48.3
[2020-08-19] MEDS: CHOLECALCIFEROL (VITD3) 2,000 UNIT CAP/TAB PO SCH (10:00)
[2020-08-19] MEDS: ASCORBIC ACID 1,000 MG TAB PO SCH (10:00)
[2020-08-19] MEDS: DexAMETHasone SOD PHOS 10MG/1ML VIAL INJ IV SCH ×2 (10:00→22:00)
[2020-08-19] MEDS: ZINC SULFATE 220mg CAP or TAB PO SCH (10:00)
[2020-08-19] MEDS: FLUCONAZOLE 200MG/100ML 100 ML IV SCH (10:00)
[2020-08-19] MEDS: ENOXAPARIN SOD 80 MG/0.8ML SYRINGE SC SCH ×2 (10:00→22:00)
[2020-08-19] MEDS: SODIUM CHLOR 0.9% PF (SALINE LOCK) 10ML VIAL/SYR IV SCH ×2 (10:00→22:00)
[2020-08-19] MEDS: PANTOPRAZOLE 40 MG/10 ML VIAL INJ IV SCH (10:00)
[2020-08-19] MEDS ORDERED: POTASSIUM EFFERVESENT TAB 25 MEQ GT ONE (13:30)
[2020-08-19] MEDS ORDERED: FUROSEMIDE 40 MG/4 ML VIAL IV ONE (13:30)
[2020-08-19] MEDS: ERGOCALCIFEROL 50,000 UNIT(1.25MG) CAP PO SCH (16:15)
[2020-08-19] MEDS: fentaNYL Drip 2500mCg/250mlNS 250 ML IV SCH (17:00)
[2020-08-19] MEDS: MIDAZOLAM DRIP 50 mg/50mL 50 ML IV SCH (22:15)
[2020-08-19] MEDS: PROPOFOL 100 ML IV SCH (22:15)
[2020-08-19] MEDS: NOREPINEPHRINE 8 MG/250ML KIT 250 ML IV SCH (22:15)
[2020-08-20] VITALS (40 sets, daily range): BP systolic 114–161; BP diastolic 68–102
[2020-08-20 05:09] LABS: Albumin 2.2 g/dL (3.4-5.0); BUN/Creatinine Ratio 48.2; Calcium 8.7 mg/dL (8.5-10.1); Potassium 4.4 mmol/L (3.5-5.1)
[2020-08-20 05:16] LABS: Bilirubin, Total 0.7 mg/dL (0.2-1.0); Total Protein 6.1 g/dL (6.4-8.2)
[2020-08-20] MEDS: ALBUTEROL SULF 2.5 MG/0.5ML(0.5%) NEB SOLN NEB PRN ×2 (05:55→22:04)
[2020-08-20] MEDS: BUDESONIDE (INHALATION) 0.5 MG/2 ML NEB NEB SCH ×2 (05:55→22:04)
[2020-08-20] MEDS: InsuLIN REG 1unit/0.01ml Soln (100units/ml) SC SCH ×4 (06:00→18:00)
[2020-08-20] MEDS: ACCU-CHEK COMFORT CURVE STRIP VI SCH ×4 (06:06→17:45)
[2020-08-20] MEDS: PIPERACILLIN-TAZOB 3.375GM 100 ML IV SCH ×3 (06:06→22:20)
[2020-08-20] MEDS: ZINC SULFATE 220mg CAP or TAB PO SCH (10:29)
[2020-08-20] MEDS: ASCORBIC ACID 1,000 MG TAB PO SCH (10:29)
[2020-08-20] MEDS: CHOLECALCIFEROL (VITD3) 2,000 UNIT CAP/TAB PO SCH (10:29)
[2020-08-20] MEDS: DexAMETHasone SOD PHOS 10MG/1ML VIAL INJ IV SCH ×2 (10:45→22:18)
[2020-08-20] MEDS: ENOXAPARIN SOD 80 MG/0.8ML SYRINGE SC SCH ×2 (10:45→22:21)
[2020-08-20] MEDS: FLUCONAZOLE 200MG/100ML 100 ML IV SCH (10:45)
[2020-08-20] MEDS: PANTOPRAZOLE 40 MG/10 ML VIAL INJ IV SCH (10:45)
[2020-08-20] MEDS: SODIUM CHLOR 0.9% PF (SALINE LOCK) 10ML VIAL/SYR IV SCH ×2 (10:46→22:19)
[2020-08-20 11:33] LABS: Basophils # (auto) 0 10 ^3/uL (0-0.2); Basophils % (auto) 0.3 % (0.0-2.0); Eosinophils # (auto) 0 10 ^3/uL (0-0.8); Eosinophils % (auto) 0.1 % (0.0-7.0); Hematocrit 32.8 % (41.0-53.0); Hemoglobin 10.7 g/dL (13.5-17.5); Lymphocytes # (auto) 0.4 10 ^3/uL (0.4-5.4); Lymphocytes % (auto) 5.4 % (10.0-50.0); Mean Corpuscular Hemoglobin 27.3 pg (28.0-32.0); Mean Corpuscular Hgb Conc. 32.6 g/dL (32.0-36.0); Mean Corpuscular Volume 83.7 fL (80.0-100.0); Monocytes # (auto) 0.5 10 ^3/uL (0-1.3); Monocytes % (auto) 6.5 % (0.0-12.0); Neutrophils # (auto) 6.2 10 ^3/uL (1.6-8.6); Neutrophils % (auto) 87.7 % (37.0-80.0); Platelet Count (auto) 246 10^3/uL (140-450); Red Blood Cells 3.92 10^6/uL (4.5-5.90); Red Cell Distribution Width 15.8 % (11.8-14.3); White Blood Cell 7.1 10^3/uL (4.4-10.8)
[2020-08-21] VITALS (16 sets, daily range): BP systolic 123–155; BP diastolic 78–103
[2020-08-21] MEDS: ACCU-CHEK COMFORT CURVE STRIP VI SCH ×4 (01:19→17:45)
[2020-08-21] MEDS: InsuLIN REG 1unit/0.01ml Soln (100units/ml) SC SCH ×4 (06:00→17:51)
[2020-08-21] MEDS: PIPERACILLIN-TAZOB 3.375GM 100 ML IV SCH ×3 (06:08→22:11)
[2020-08-21] MEDS: BUDESONIDE (INHALATION) 0.5 MG/2 ML NEB NEB SCH ×2 (07:20→23:32)
[2020-08-21] MEDS: DexAMETHasone SOD PHOS 10MG/1ML VIAL INJ IV SCH (09:56)
[2020-08-21] MEDS: FLUCONAZOLE 200MG/100ML 100 ML IV SCH (09:56)
[2020-08-21] MEDS: PANTOPRAZOLE 40 MG/10 ML VIAL INJ IV SCH (09:59)
[2020-08-21] MEDS: SODIUM CHLOR 0.9% PF (SALINE LOCK) 10ML VIAL/SYR IV SCH ×2 (10:02→22:11)
[2020-08-21] MEDS: ZINC SULFATE 220mg CAP or TAB PO SCH (10:02)
[2020-08-21] MEDS: ASCORBIC ACID 1,000 MG TAB PO SCH (10:03)
[2020-08-21] MEDS: CHOLECALCIFEROL (VITD3) 2,000 UNIT CAP/TAB PO SCH (10:03)
[2020-08-21] MEDS: ENOXAPARIN SOD 80 MG/0.8ML SYRINGE SC SCH ×2 (10:04→22:11)
[2020-08-21] MEDS ORDERED: LORazepam 2MG/ML-1ML VIAL IV PRN (13:15)
[2020-08-21] MEDS: Glucerna Carbsteady SHAKE Stawberry 8oz PO SCH (18:00)
[2020-08-21] MEDS ORDERED: Ensure HIGH Protein Chocolate 8oz Bottle PO SCH (18:00)
[2020-08-21] MEDS: ALBUTEROL SULF 2.5 MG/0.5ML(0.5%) NEB SOLN NEB PRN (23:32)
[2020-08-22] VITALS (46 sets, daily range): BP systolic 99–140; BP diastolic 34–91
[2020-08-22] MEDS: ACCU-CHEK COMFORT CURVE STRIP VI SCH ×5 (01:24→23:13)
[2020-08-22 04:47] LABS: Basophils # (auto) 0 10 ^3/uL (0-0.2); Eosinophils # (auto) 0.1 10 ^3/uL (0-0.8); Eosinophils % (auto) 0.5 % (0.0-7.0); Hematocrit 32.7 % (41.0-53.0); Hemoglobin 10.9 g/dL (13.5-17.5); Lymphocytes # (auto) 1.2 10 ^3/uL (0.4-5.4); Lymphocytes % (auto) 10.9 % (10.0-50.0); Mean Corpuscular Hgb Conc. 33.3 g/dL (32.0-36.0); Mean Corpuscular Volume 84.2 fL (80.0-100.0); Monocytes # (auto) 0.7 10 ^3/uL (0-1.3); Monocytes % (auto) 5.8 % (0.0-12.0); Neutrophils # (auto) 9.4 10 ^3/uL (1.6-8.6); Neutrophils % (auto) 82.8 % (37.0-80.0); Platelet Count (auto) 241 10^3/uL (140-450); Red Blood Cells 3.88 10^6/uL (4.5-5.90); Red Cell Distribution Width 15.5 % (11.8-14.3); White Blood Cell 11.4 10^3/uL (4.4-10.8)
[2020-08-22 05:08] LABS: Calcium 8.4 mg/dL (8.5-10.1); Potassium 3.8 mmol/L (3.5-5.1)
[2020-08-22] MEDS: InsuLIN REG 1unit/0.01ml Soln (100units/ml) SC SCH ×5 (06:00→23:13)
[2020-08-22] MEDS: PIPERACILLIN-TAZOB 3.375GM 100 ML IV SCH ×3 (06:02→22:00)
[2020-08-22] MEDS: ALBUTEROL SULF 2.5 MG/0.5ML(0.5%) NEB SOLN NEB PRN (06:23)
[2020-08-22] MEDS: BUDESONIDE (INHALATION) 0.5 MG/2 ML NEB NEB SCH ×2 (06:23→22:26)
[2020-08-22] MEDS: Glucerna Carbsteady SHAKE Stawberry 8oz PO SCH ×3 (09:00→17:36)
[2020-08-22] MEDS: DexAMETHasone SOD PHOS 4 MG/1ML SDV INJ IV SCH (10:04)
[2020-08-22] MEDS: SODIUM CHLOR 0.9% PF (SALINE LOCK) 10ML VIAL/SYR IV SCH ×2 (10:04→22:00)
[2020-08-22] MEDS: FLUCONAZOLE 200MG/100ML 100 ML IV SCH (10:04)
[2020-08-22] MEDS: PANTOPRAZOLE 40 MG/10 ML VIAL INJ IV SCH (10:04)
[2020-08-22] MEDS: ENOXAPARIN SOD 80 MG/0.8ML SYRINGE SC SCH ×2 (10:30→22:00)
[2020-08-22] MEDS: ZINC SULFATE 220mg CAP or TAB PO SCH (10:30)
[2020-08-22] MEDS: CHOLECALCIFEROL (VITD3) 2,000 UNIT CAP/TAB PO SCH (10:30)
[2020-08-22] MEDS: ASCORBIC ACID 1,000 MG TAB PO SCH (10:30)
[2020-08-23 05:00] VITALS: BP 104/64
[2020-08-23] MEDS: InsuLIN REG 1unit/0.01ml Soln (100units/ml) SC SCH (05:13)
[2020-08-23] MEDS: ACCU-CHEK COMFORT CURVE STRIP VI SCH (05:13)
[2020-08-23] MEDS: PIPERACILLIN-TAZOB 3.375GM 100 ML IV SCH (05:13)
[2020-08-23] MEDS: BUDESONIDE (INHALATION) 0.5 MG/2 ML NEB NEB SCH ×2 (06:55→18:34)
[2020-08-23 09:00] VITALS: BP 110/68
[2020-08-23] MEDS: Glucerna Carbsteady SHAKE Stawberry 8oz PO SCH ×3 (10:32→18:24)
[2020-08-23] MEDS: DexAMETHasone SOD PHOS 4 MG/1ML SDV INJ IV SCH (11:13)
[2020-08-23] MEDS: ASCORBIC ACID 1,000 MG TAB PO SCH (11:13)
[2020-08-23] MEDS: FLUCONAZOLE 200MG/100ML 100 ML IV SCH (11:13)
[2020-08-23] MEDS: ENOXAPARIN SOD 80 MG/0.8ML SYRINGE SC SCH ×2 (11:13→21:52)
[2020-08-23] MEDS: PANTOPRAZOLE 40 MG/10 ML VIAL INJ IV SCH (11:13)
[2020-08-23] MEDS: ZINC SULFATE 220mg CAP or TAB PO SCH (11:13)
[2020-08-23] MEDS: CHOLECALCIFEROL (VITD3) 2,000 UNIT CAP/TAB PO SCH (11:13)
[2020-08-23] MEDS: SODIUM CHLOR 0.9% PF (SALINE LOCK) 10ML VIAL/SYR IV SCH ×2 (11:37→21:52)
[2020-08-23] MEDS: NYSTATIN (MOUTH-THROAT) 500,000 UNITS/5 ML SUSP MT SCH ×3 (12:54→21:52)
[2020-08-23 13:20] VITALS: BP 124/81
[2020-08-23 17:00] VITALS: BP 123/82
[2020-08-23] MEDS: ALBUTEROL SULF 2.5 MG/0.5ML(0.5%) NEB SOLN NEB PRN (18:34)
[2020-08-23 22:00] VITALS: BP 114/70
[2020-08-24] VITALS (7 sets, daily range): BP systolic 109–136; BP diastolic 67–85
[2020-08-24] MEDS: NYSTATIN (MOUTH-THROAT) 500,000 UNITS/5 ML SUSP MT SCH ×4 (06:14→22:00)
[2020-08-24 06:25] LABS: Basophils # (auto) 0 10 ^3/uL (0-0.2); Basophils % (auto) 0.1 % (0.0-2.0); Eosinophils # (auto) 0.3 10 ^3/uL (0-0.8); Eosinophils % (auto) 3.5 % (0.0-7.0); Hematocrit 31.2 % (41.0-53.0); Hemoglobin 10.3 g/dL (13.5-17.5); Lymphocytes # (auto) 1.2 10 ^3/uL (0.4-5.4); Lymphocytes % (auto) 13.6 % (10.0-50.0); Mean Corpuscular Hemoglobin 28.1 pg (28.0-32.0); Mean Corpuscular Hgb Conc. 33.2 g/dL (32.0-36.0); Mean Corpuscular Volume 84.8 fL (80.0-100.0); Monocytes # (auto) 0.6 10 ^3/uL (0-1.3); Monocytes % (auto) 6.9 % (0.0-12.0); Neutrophils # (auto) 6.5 10 ^3/uL (1.6-8.6); Neutrophils % (auto) 75.9 % (37.0-80.0); Platelet Count (auto) 248 10^3/uL (140-450); Red Blood Cells 3.67 10^6/uL (4.5-5.90); Red Cell Distribution Width 15.8 % (11.8-14.3); White Blood Cell 8.6 10^3/uL (4.4-10.8)
[2020-08-24 06:40] LABS: Calcium 8.7 mg/dL (8.5-10.1); Potassium 3.9 mmol/L (3.5-5.1)
[2020-08-24 06:42] LABS: BUN/Creatinine Ratio 53.8
[2020-08-24] MEDS: BUDESONIDE (INHALATION) 0.5 MG/2 ML NEB NEB SCH ×2 (06:50→19:18)
[2020-08-24] MEDS: Glucerna Carbsteady SHAKE Stawberry 8oz PO SCH ×3 (09:41→18:08)
[2020-08-24] MEDS: ENOXAPARIN SOD 80 MG/0.8ML SYRINGE SC SCH ×2 (10:53→22:00)
[2020-08-24] MEDS: FLUCONAZOLE 200MG/100ML 100 ML IV SCH (10:53)
[2020-08-24] MEDS: FAMOTIDINE 20 MG TAB PO SCH (10:54)
[2020-08-24] MEDS: levoFLOXacin 500 MG TAB PO SCH (10:54)
[2020-08-24] MEDS: ASCORBIC ACID 1,000 MG TAB PO SCH (10:54)
[2020-08-24] MEDS: ZINC SULFATE 220mg CAP or TAB PO SCH (10:54)
[2020-08-24] MEDS: DexAMETHasone 4 MG TAB PO SCH (10:54)
[2020-08-24] MEDS: CHOLECALCIFEROL (VITD3) 2,000 UNIT CAP/TAB PO SCH (10:55)
[2020-08-24] MEDS: SODIUM CHLOR 0.9% PF (SALINE LOCK) 10ML VIAL/SYR IV SCH ×2 (10:56→22:00)
[2020-08-25 05:00] VITALS: BP 123/73
[2020-08-25] MEDS: NYSTATIN (MOUTH-THROAT) 500,000 UNITS/5 ML SUSP MT SCH ×4 (05:44→22:00)
[2020-08-25] MEDS: BUDESONIDE (INHALATION) 0.5 MG/2 ML NEB NEB SCH (07:23)
[2020-08-25] MEDS: Glucerna Carbsteady SHAKE Stawberry 8oz PO SCH ×3 (08:32→18:42)
[2020-08-25 08:46] VITALS: BP 117/66
[2020-08-25] MEDS: ZINC SULFATE 220mg CAP or TAB PO SCH (09:51)
[2020-08-25] MEDS: DexAMETHasone 4 MG TAB PO SCH (09:51)
[2020-08-25] MEDS: SODIUM CHLOR 0.9% PF (SALINE LOCK) 10ML VIAL/SYR IV SCH ×2 (09:51→22:00)
[2020-08-25] MEDS: levoFLOXacin 500 MG TAB PO SCH (09:51)
[2020-08-25] MEDS: FLUCONAZOLE 200MG/100ML 100 ML IV SCH (09:51)
[2020-08-25] MEDS: ASCORBIC ACID 1,000 MG TAB PO SCH (09:52)
[2020-08-25] MEDS: CHOLECALCIFEROL (VITD3) 2,000 UNIT CAP/TAB PO SCH (09:52)
[2020-08-25] MEDS: FAMOTIDINE 20 MG TAB PO SCH (09:52)
[2020-08-25] MEDS: ENOXAPARIN SOD 80 MG/0.8ML SYRINGE SC SCH ×2 (09:52→22:00)
[2020-08-25 12:45] VITALS: BP 106/57
[2020-08-25] MEDS: ALBUTEROL SULF HFA 90MCG INH 200DOSE IN SCH ×2 (14:31→22:18)
[2020-08-25 16:40] VITALS: BP 131/75
[2020-08-25 22:00] VITALS: BP 127/84
[2020-08-25] MEDS ORDERED: PATIENTS OWN MEDICATION (PULMICORT 360 MCG) IN SCH (22:00)
[2020-08-25] MEDS: BUDESONIDE (INHALATION) 180 MCG IH IN SCH (22:18)
[2020-08-26 05:00] VITALS: BP 121/76
[2020-08-26] MEDS: NYSTATIN (MOUTH-THROAT) 500,000 UNITS/5 ML SUSP MT SCH ×4 (05:58→21:20)
[2020-08-26] MEDS: ALBUTEROL SULF HFA 90MCG INH 200DOSE IN SCH ×3 (07:00→20:11)
[2020-08-26] MEDS: BUDESONIDE (INHALATION) 180 MCG IH IN SCH ×3 (07:00→20:10)
[2020-08-26] MEDS: Glucerna Carbsteady SHAKE Stawberry 8oz PO SCH ×3 (08:22→18:12)
[2020-08-26 09:00] VITALS: BP 127/69
[2020-08-26] MEDS: ZINC SULFATE 220mg CAP or TAB PO SCH (10:26)
[2020-08-26] MEDS: SODIUM CHLOR 0.9% PF (SALINE LOCK) 10ML VIAL/SYR IV SCH ×2 (10:26→21:20)
[2020-08-26] MEDS: CHOLECALCIFEROL (VITD3) 2,000 UNIT CAP/TAB PO SCH (10:27)
[2020-08-26] MEDS: ASCORBIC ACID 1,000 MG TAB PO SCH (10:27)
[2020-08-26] MEDS: levoFLOXacin 500 MG TAB PO SCH (10:27)
[2020-08-26] MEDS: DexAMETHasone 4 MG TAB PO SCH (10:27)
[2020-08-26] MEDS: FAMOTIDINE 20 MG TAB PO SCH (10:27)
[2020-08-26] MEDS: ENOXAPARIN SOD 80 MG/0.8ML SYRINGE SC SCH ×2 (10:28→21:20)
[2020-08-26 13:00] VITALS: BP 140/88
[2020-08-26 17:00] VITALS: BP 128/85
[2020-08-26] MEDS: ERGOCALCIFEROL 50,000 UNIT(1.25MG) CAP PO SCH (21:20)
[2020-08-26 22:00] VITALS: BP 125/82
[2020-08-27 05:00] VITALS: BP 132/80
[2020-08-27] MEDS: NYSTATIN (MOUTH-THROAT) 500,000 UNITS/5 ML SUSP MT SCH ×4 (06:29→21:59)
[2020-08-27] MEDS: ALBUTEROL SULF HFA 90MCG INH 200DOSE IN SCH ×3 (06:50→21:49)
[2020-08-27] MEDS: BUDESONIDE (INHALATION) 180 MCG IH IN SCH ×2 (06:50→21:48)
[2020-08-27 09:00] VITALS: BP 122/70
[2020-08-27] MEDS: DexAMETHasone 4 MG TAB PO SCH (10:44)
[2020-08-27] MEDS: SODIUM CHLOR 0.9% PF (SALINE LOCK) 10ML VIAL/SYR IV SCH ×2 (10:44→21:20)
[2020-08-27] MEDS: Glucerna Carbsteady SHAKE Stawberry 8oz PO SCH ×3 (10:44→17:56)
[2020-08-27] MEDS: ZINC SULFATE 220mg CAP or TAB PO SCH (10:44)
[2020-08-27] MEDS: ASCORBIC ACID 1,000 MG TAB PO SCH (10:45)
[2020-08-27] MEDS: levoFLOXacin 500 MG TAB PO SCH (10:45)
[2020-08-27] MEDS: CHOLECALCIFEROL (VITD3) 2,000 UNIT CAP/TAB PO SCH (10:45)
[2020-08-27] MEDS: FAMOTIDINE 20 MG TAB PO SCH (10:45)
[2020-08-27] MEDS: ENOXAPARIN SOD 80 MG/0.8ML SYRINGE SC SCH ×2 (10:45→21:59)
[2020-08-27] MEDS ORDERED: diphenhdrAMINE HCL 50 MG/1 ML VL IV PRN (12:45)
[2020-08-27 13:00] VITALS: BP 121/66
[2020-08-27 17:00] VITALS: BP 134/89
[2020-08-27 22:00] VITALS: BP 128/68
[2020-08-28 00:51] VITALS: BP 128/68
[2020-08-28 05:00] VITALS: BP 123/76
[2020-08-28] MEDS: NYSTATIN (MOUTH-THROAT) 500,000 UNITS/5 ML SUSP MT SCH ×4 (05:36→21:14)
[2020-08-28] MEDS: ALBUTEROL SULF HFA 90MCG INH 200DOSE IN SCH ×3 (06:20→19:18)
[2020-08-28] MEDS: BUDESONIDE (INHALATION) 180 MCG IH IN SCH ×2 (06:20→19:18)
[2020-08-28] MEDS: Glucerna Carbsteady SHAKE Stawberry 8oz PO SCH ×3 (08:00→18:43)
[2020-08-28 09:00] VITALS: BP 121/73
[2020-08-28] MEDS: DexAMETHasone 4 MG TAB PO SCH (10:32)
[2020-08-28] MEDS: SODIUM CHLOR 0.9% PF (SALINE LOCK) 10ML VIAL/SYR IV SCH ×2 (10:32→21:14)
[2020-08-28] MEDS: ZINC SULFATE 220mg CAP or TAB PO SCH (10:32)
[2020-08-28] MEDS: levoFLOXacin 500 MG TAB PO SCH (10:33)
[2020-08-28] MEDS: ENOXAPARIN SOD 80 MG/0.8ML SYRINGE SC SCH ×2 (10:33→21:14)
[2020-08-28] MEDS: CHOLECALCIFEROL (VITD3) 2,000 UNIT CAP/TAB PO SCH (10:33)
[2020-08-28] MEDS: FAMOTIDINE 20 MG TAB PO SCH (10:33)
[2020-08-28] MEDS: ASCORBIC ACID 1,000 MG TAB PO SCH (10:33)
[2020-08-28 13:00] VITALS: BP 126/77
[2020-08-28 17:00] VITALS: BP 130/72
[2020-08-28 22:00] VITALS: BP 134/76
[2020-08-29 05:00] VITALS: BP 139/86
[2020-08-29] MEDS: NYSTATIN (MOUTH-THROAT) 500,000 UNITS/5 ML SUSP MT SCH ×4 (05:30→21:39)
[2020-08-29 05:46] LABS: Basophils # (auto) 0 10 ^3/uL (0-0.2); Basophils % (auto) 0.3 % (0.0-2.0); Eosinophils # (auto) 0.1 10 ^3/uL (0-0.8); Eosinophils % (auto) 1.7 % (0.0-7.0); Hematocrit 32.5 % (41.0-53.0); Hemoglobin 10.7 g/dL (13.5-17.5); Lymphocytes # (auto) 1.2 10 ^3/uL (0.4-5.4); Lymphocytes % (auto) 16.5 % (10.0-50.0); Mean Corpuscular Hgb Conc. 32.8 g/dL (32.0-36.0); Mean Corpuscular Volume 85.2 fL (80.0-100.0); Monocytes # (auto) 0.5 10 ^3/uL (0-1.3); Monocytes % (auto) 6.4 % (0.0-12.0); Neutrophils # (auto) 5.4 10 ^3/uL (1.6-8.6); Neutrophils % (auto) 75.1 % (37.0-80.0); Platelet Count (auto) 273 10^3/uL (140-450); Red Blood Cells 3.81 10^6/uL (4.5-5.90); Red Cell Distribution Width 16.5 % (11.8-14.3); White Blood Cell 7.2 10^3/uL (4.4-10.8)
[2020-08-29 06:06] LABS: Calcium 9.1 mg/dL (8.5-10.1); Potassium 3.3 mmol/L (3.5-5.1)
[2020-08-29 06:09] LABS: BUN/Creatinine Ratio 42.5
[2020-08-29] MEDS: Glucerna Carbsteady SHAKE Stawberry 8oz PO SCH ×3 (08:00→21:38)
[2020-08-29] MEDS: BUDESONIDE (INHALATION) 180 MCG IH IN SCH (08:39)
[2020-08-29] MEDS: ALBUTEROL SULF HFA 90MCG INH 200DOSE IN SCH ×2 (08:39→18:52)
[2020-08-29 09:00] VITALS: BP 147/92
[2020-08-29] MEDS ORDERED: DexAMETHasone 4 MG TAB PO SCH (10:00)
[2020-08-29] MEDS: SODIUM CHLOR 0.9% PF (SALINE LOCK) 10ML VIAL/SYR IV SCH ×2 (11:02→21:38)
[2020-08-29] MEDS: ZINC SULFATE 220mg CAP or TAB PO SCH (11:02)
[2020-08-29] MEDS: FAMOTIDINE 20 MG TAB PO SCH (11:02)
[2020-08-29] MEDS: ENOXAPARIN SOD 80 MG/0.8ML SYRINGE SC SCH ×2 (11:03→21:38)
[2020-08-29] MEDS: ASCORBIC ACID 1,000 MG TAB PO SCH (11:03)
[2020-08-29] MEDS: CHOLECALCIFEROL (VITD3) 2,000 UNIT CAP/TAB PO SCH (11:03)
[2020-08-29 13:00] VITALS: BP 135/75
[2020-08-29] MEDS ORDERED: POTASSIUM CHL 20 Meq TABLET PO ONE (13:45)
[2020-08-29 17:00] VITALS: BP 116/74
[2020-08-29 22:00] VITALS: BP 123/80
[2020-08-30 05:00] VITALS: BP 140/91
[2020-08-30] MEDS: NYSTATIN (MOUTH-THROAT) 500,000 UNITS/5 ML SUSP MT SCH ×4 (05:10→21:39)
[2020-08-30] MEDS: ALBUTEROL SULF HFA 90MCG INH 200DOSE IN SCH ×2 (06:44→22:00)
[2020-08-30] MEDS: Glucerna Carbsteady SHAKE Stawberry 8oz PO SCH ×3 (08:03→17:38)
[2020-08-30 08:54] VITALS: BP 167/52
[2020-08-30 08:56] VITALS: BP 140/84
[2020-08-30] MEDS: SODIUM CHLOR 0.9% PF (SALINE LOCK) 10ML VIAL/SYR IV SCH ×2 (09:56→21:39)
[2020-08-30] MEDS: FAMOTIDINE 20 MG TAB PO SCH (09:59)
[2020-08-30] MEDS: CHOLECALCIFEROL (VITD3) 2,000 UNIT CAP/TAB PO SCH (09:59)
[2020-08-30] MEDS: ZINC SULFATE 220mg CAP or TAB PO SCH (09:59)
[2020-08-30] MEDS: ASCORBIC ACID 1,000 MG TAB PO SCH (09:59)
[2020-08-30] MEDS: ENOXAPARIN SOD 80 MG/0.8ML SYRINGE SC SCH ×2 (10:00→12:02)
[2020-08-30] MEDS ORDERED: DexAMETHasone 4 MG TAB PO SCH (10:00)
[2020-08-30 12:30] VITALS: BP 123/69
[2020-08-30 16:28] VITALS: BP 121/62
[2020-08-30] MEDS: APIXABAN 5 MG TAB PO SCH (21:39)
[2020-08-30 22:00] VITALS: BP 131/85
[2020-08-31 01:27] VITALS: BP 131/85
[2020-08-31 05:00] VITALS: BP 141/88
[2020-08-31] MEDS: NYSTATIN (MOUTH-THROAT) 500,000 UNITS/5 ML SUSP MT SCH (06:02)
[2020-08-31 06:16] LABS: Calcium 8.6 mg/dL (8.5-10.1); Potassium 3.5 mmol/L (3.5-5.1)
[2020-08-31] MEDS: ALBUTEROL SULF HFA 90MCG INH 200DOSE IN SCH ×3 (06:17→20:53)
[2020-08-31] MEDS: Glucerna Carbsteady SHAKE Stawberry 8oz PO SCH ×3 (07:59→17:40)
[2020-08-31 08:30] VITALS: BP 140/85
[2020-08-31] MEDS: SODIUM CHLOR 0.9% PF (SALINE LOCK) 10ML VIAL/SYR IV SCH ×2 (09:07→21:36)
[2020-08-31] MEDS: CHOLECALCIFEROL (VITD3) 2,000 UNIT CAP/TAB PO SCH (09:07)
[2020-08-31] MEDS: FAMOTIDINE 20 MG TAB PO SCH (09:07)
[2020-08-31] MEDS: APIXABAN 5 MG TAB PO SCH ×2 (09:07→21:36)
[2020-08-31] MEDS: ASCORBIC ACID 1,000 MG TAB PO SCH (09:07)
[2020-08-31] MEDS: ZINC SULFATE 220mg CAP or TAB PO SCH (09:07)
[2020-08-31 13:10] VITALS: BP 125/85
[2020-08-31 17:02] VITALS: BP 121/77
[2020-08-31 22:10] VITALS: BP 110/70
[2020-09-01 05:28] VITALS: BP 124/76
[2020-09-01] MEDS: ALBUTEROL SULF HFA 90MCG INH 200DOSE IN SCH ×3 (07:37→22:31)
[2020-09-01] MEDS: Glucerna Carbsteady SHAKE Stawberry 8oz PO SCH ×3 (08:00→18:29)
[2020-09-01 08:41] VITALS: BP 127/79
[2020-09-01] MEDS: SODIUM CHLOR 0.9% PF (SALINE LOCK) 10ML VIAL/SYR IV SCH ×2 (10:28→22:13)
[2020-09-01] MEDS: ZINC SULFATE 220mg CAP or TAB PO SCH (10:28)
[2020-09-01] MEDS: APIXABAN 5 MG TAB PO SCH ×2 (10:30→22:13)
[2020-09-01] MEDS: ASCORBIC ACID 1,000 MG TAB PO SCH (10:31)
[2020-09-01] MEDS: CHOLECALCIFEROL (VITD3) 2,000 UNIT CAP/TAB PO SCH (10:31)
[2020-09-01] MEDS: FAMOTIDINE 20 MG TAB PO SCH (10:31)
[2020-09-01 13:15] VITALS: BP 142/63
[2020-09-01 16:06] VITALS: BP 117/83
[2020-09-01 22:00] VITALS: BP 120/78
[2020-09-02 05:00] VITALS: BP 123/76
[2020-09-02] MEDS: ALBUTEROL SULF HFA 90MCG INH 200DOSE IN SCH ×3 (07:55→19:35)
[2020-09-02] MEDS: Glucerna Carbsteady SHAKE Stawberry 8oz PO SCH ×3 (08:00→18:02)
[2020-09-02 09:00] VITALS: BP 121/76
[2020-09-02] MEDS: ZINC SULFATE 220mg CAP or TAB PO SCH (11:24)
[2020-09-02] MEDS: APIXABAN 5 MG TAB PO SCH ×2 (11:24→22:50)
[2020-09-02] MEDS: SODIUM CHLOR 0.9% PF (SALINE LOCK) 10ML VIAL/SYR IV SCH ×2 (11:24→22:50)
[2020-09-02] MEDS: FAMOTIDINE 20 MG TAB PO SCH (11:24)
[2020-09-02] MEDS: ASCORBIC ACID 1,000 MG TAB PO SCH (11:25)
[2020-09-02] MEDS: CHOLECALCIFEROL (VITD3) 2,000 UNIT CAP/TAB PO SCH (11:25)
[2020-09-02 13:00] VITALS: BP 135/78
[2020-09-02 17:00] VITALS: BP 130/77
[2020-09-02] MEDS: ERGOCALCIFEROL 50,000 UNIT(1.25MG) CAP PO SCH ×2 (17:24→18:02)
[2020-09-02 23:27] VITALS: BP 116/78
[2020-09-03 00:16] VITALS: BP 116/78
[2020-09-03 05:19] VITALS: BP 124/85
[2020-09-03] MEDS: ALBUTEROL SULF HFA 90MCG INH 200DOSE IN SCH ×3 (07:55→18:08)
[2020-09-03] MEDS: Glucerna Carbsteady SHAKE Stawberry 8oz PO SCH ×2 (08:00→12:00)
[2020-09-03 09:00] VITALS: BP 122/75
[2020-09-03] MEDS: SODIUM CHLOR 0.9% PF (SALINE LOCK) 10ML VIAL/SYR IV SCH ×2 (09:10→21:37)
[2020-09-03] MEDS: ZINC SULFATE 220mg CAP or TAB PO SCH (09:57)
[2020-09-03] MEDS: ASCORBIC ACID 1,000 MG TAB PO SCH (09:57)
[2020-09-03] MEDS: APIXABAN 5 MG TAB PO SCH ×2 (09:58→21:37)
[2020-09-03] MEDS: FAMOTIDINE 20 MG TAB PO SCH (09:58)
[2020-09-03] MEDS: CHOLECALCIFEROL (VITD3) 2,000 UNIT CAP/TAB PO SCH (09:58)
[2020-09-03 13:00] VITALS: BP 117/70
[2020-09-03 17:00] VITALS: BP 126/82
[2020-09-03 22:00] VITALS: BP 139/82
[2020-09-04 05:00] VITALS: BP 122/77
[2020-09-04] MEDS: ALBUTEROL SULF HFA 90MCG INH 200DOSE IN SCH ×3 (07:00→19:48)
[2020-09-04] MEDS: Glucerna Carbsteady SHAKE Stawberry 8oz PO SCH ×4 (08:00→18:00)
[2020-09-04 09:00] VITALS: BP 148/84
[2020-09-04] MEDS: SODIUM CHLOR 0.9% PF (SALINE LOCK) 10ML VIAL/SYR IV SCH ×2 (09:25→21:03)
[2020-09-04] MEDS: ZINC SULFATE 220mg CAP or TAB PO SCH (09:25)
[2020-09-04] MEDS: APIXABAN 5 MG TAB PO SCH ×2 (09:26→21:03)
[2020-09-04] MEDS: FAMOTIDINE 20 MG TAB PO SCH (09:26)
[2020-09-04] MEDS: ASCORBIC ACID 1,000 MG TAB PO SCH (09:28)
[2020-09-04] MEDS: CHOLECALCIFEROL (VITD3) 2,000 UNIT CAP/TAB PO SCH (09:28)
[2020-09-04 13:00] VITALS: BP 135/90
[2020-09-04 16:48] VITALS: BP 126/81
[2020-09-04 22:23] VITALS: BP 120/78
[2020-09-05 05:00] VITALS: BP 132/86
[2020-09-05 07:21] LABS: Basophils # (auto) 0 10 ^3/uL (0-0.2); Basophils % (auto) 0.7 % (0.0-2.0); Eosinophils # (auto) 0.2 10 ^3/uL (0-0.8); Eosinophils % (auto) 4.2 % (0.0-7.0); Hematocrit 29.5 % (41.0-53.0); Hemoglobin 9.8 g/dL (13.5-17.5); Lymphocytes # (auto) 0.7 10 ^3/uL (0.4-5.4); Lymphocytes % (auto) 13.1 % (10.0-50.0); Mean Corpuscular Hemoglobin 28.8 pg (28.0-32.0); Mean Corpuscular Hgb Conc. 33.1 g/dL (32.0-36.0); Monocytes # (auto) 0.4 10 ^3/uL (0-1.3); Monocytes % (auto) 7.9 % (0.0-12.0); Neutrophils # (auto) 3.9 10 ^3/uL (1.6-8.6); Neutrophils % (auto) 74.1 % (37.0-80.0); Platelet Count (auto) 264 10^3/uL (140-450); Red Blood Cells 3.39 10^6/uL (4.5-5.90); Red Cell Distribution Width 17.4 % (11.8-14.3); White Blood Cell 5.3 10^3/uL (4.4-10.8)
[2020-09-05 07:31] LABS: BUN/Creatinine Ratio 29.7; Calcium 8.8 mg/dL (8.5-10.1); Potassium 3.4 mmol/L (3.5-5.1)
[2020-09-05] MEDS: ALBUTEROL SULF HFA 90MCG INH 200DOSE IN SCH ×2 (08:05→18:59)
[2020-09-05 08:42] VITALS: BP 128/92
[2020-09-05] MEDS: CHOLECALCIFEROL (VITD3) 2,000 UNIT CAP/TAB PO SCH (09:28)
[2020-09-05] MEDS: ASCORBIC ACID 1,000 MG TAB PO SCH (09:28)
[2020-09-05] MEDS: FAMOTIDINE 20 MG TAB PO SCH (09:28)
[2020-09-05] MEDS: APIXABAN 5 MG TAB PO SCH ×2 (09:28→22:25)
[2020-09-05] MEDS: SODIUM CHLOR 0.9% PF (SALINE LOCK) 10ML VIAL/SYR IV SCH ×2 (09:29→22:25)
[2020-09-05] MEDS: Glucerna Carbsteady SHAKE Stawberry 8oz PO SCH ×3 (09:32→18:00)
[2020-09-05] MEDS ORDERED: POTASSIUM CHL 20 Meq TABLET PO ONE (12:30)
[2020-09-05] MEDS ORDERED: FUROSEMIDE 20 MG/2 ML VIAL IV ONE (12:30)
[2020-09-05 13:00] VITALS: BP 116/74
[2020-09-05 16:44] VITALS: BP 127/83
[2020-09-05 22:00] VITALS: BP 122/78
[2020-09-06 01:38] VITALS: BP 122/78
[2020-09-06 05:00] VITALS: BP 121/73
[2020-09-06] MEDS: ALBUTEROL SULF HFA 90MCG INH 200DOSE IN SCH ×3 (06:20→22:32)
[2020-09-06 09:00] VITALS: BP 111/77
[2020-09-06] MEDS: Glucerna Carbsteady SHAKE Stawberry 8oz PO SCH ×3 (09:19→18:27)
[2020-09-06] MEDS: SODIUM CHLOR 0.9% PF (SALINE LOCK) 10ML VIAL/SYR IV SCH ×2 (09:19→22:18)
[2020-09-06] MEDS: ASCORBIC ACID 1,000 MG TAB PO SCH (09:19)
[2020-09-06] MEDS: FAMOTIDINE 20 MG TAB PO SCH (09:19)
[2020-09-06] MEDS: APIXABAN 5 MG TAB PO SCH ×2 (09:19→22:18)
[2020-09-06] MEDS: CHOLECALCIFEROL (VITD3) 2,000 UNIT CAP/TAB PO SCH (09:19)
[2020-09-06] MEDS ORDERED: FUROSEMIDE 20 MG/2 ML VIAL IV ONE (12:15)
[2020-09-06] MEDS ORDERED: POTASSIUM CHL 20 Meq TABLET PO ONE (12:15)
[2020-09-06 13:00] VITALS: BP 113/73
[2020-09-06 17:00] VITALS: BP 123/84
[2020-09-06 22:00] VITALS: BP 132/81
[2020-09-07 05:00] VITALS: BP 105/63
[2020-09-07 06:12] LABS: Potassium 3.4 mmol/L (3.5-5.1)
[2020-09-07 06:17] LABS: BUN/Creatinine Ratio 26.5; Calcium 8.6 mg/dL (8.5-10.1)
[2020-09-07] MEDS: ALBUTEROL SULF HFA 90MCG INH 200DOSE IN SCH ×3 (06:40→19:15)
[2020-09-07] MEDS: Glucerna Carbsteady SHAKE Stawberry 8oz PO SCH ×3 (08:00→18:55)
[2020-09-07 09:00] VITALS: BP 97/79
[2020-09-07] MEDS: FAMOTIDINE 20 MG TAB PO SCH (09:40)
[2020-09-07] MEDS: CHOLECALCIFEROL (VITD3) 2,000 UNIT CAP/TAB PO SCH (09:40)
[2020-09-07] MEDS: APIXABAN 5 MG TAB PO SCH ×2 (09:40→22:29)
[2020-09-07] MEDS: ASCORBIC ACID 1,000 MG TAB PO SCH (09:41)
[2020-09-07] MEDS: SODIUM CHLOR 0.9% PF (SALINE LOCK) 10ML VIAL/SYR IV SCH ×2 (10:00→22:29)
[2020-09-07 13:00] VITALS: BP 115/76
[2020-09-07 16:49] VITALS: BP 127/76
[2020-09-07 22:00] VITALS: BP 124/85
[2020-09-08 05:05] VITALS: BP 139/87
[2020-09-08] MEDS: ALBUTEROL SULF HFA 90MCG INH 200DOSE IN SCH ×2 (07:49→13:51)
[2020-09-08] MEDS: SODIUM CHLOR 0.9% PF (SALINE LOCK) 10ML VIAL/SYR IV SCH ×2 (08:37→21:54)
[2020-09-08] MEDS: APIXABAN 5 MG TAB PO SCH ×2 (08:37→21:58)
[2020-09-08] MEDS: Glucerna Carbsteady SHAKE Stawberry 8oz PO SCH ×3 (08:37→18:33)
[2020-09-08] MEDS: ASCORBIC ACID 1,000 MG TAB PO SCH (08:37)
[2020-09-08] MEDS: FAMOTIDINE 20 MG TAB PO SCH (08:37)
[2020-09-08] MEDS: CHOLECALCIFEROL (VITD3) 2,000 UNIT CAP/TAB PO SCH (08:38)
[2020-09-08 08:58] VITALS: BP 130/68
[2020-09-08 12:54] VITALS: BP 136/85
[2020-09-08 16:58] VITALS: BP 130/82
[2020-09-08] MEDS: ALBUTEROL SULF HFA 90MCG INH 200DOSE IN PRN (20:02)
[2020-09-08 22:00] VITALS: BP 133/87
[2020-09-09 01:02] VITALS: BP 133/87
[2020-09-09 05:00] VITALS: BP 120/83
[2020-09-09 08:30] VITALS: BP 135/86
[2020-09-09] MEDS: SODIUM CHLOR 0.9% PF (SALINE LOCK) 10ML VIAL/SYR IV SCH ×2 (08:34→21:18)
[2020-09-09] MEDS: Glucerna Carbsteady SHAKE Stawberry 8oz PO SCH ×3 (08:34→18:17)
[2020-09-09] MEDS: ASCORBIC ACID 1,000 MG TAB PO SCH (08:35)
[2020-09-09] MEDS: APIXABAN 5 MG TAB PO SCH ×2 (08:35→21:30)
[2020-09-09] MEDS: FAMOTIDINE 20 MG TAB PO SCH (08:35)
[2020-09-09] MEDS: CHOLECALCIFEROL (VITD3) 2,000 UNIT CAP/TAB PO SCH (08:35)
[2020-09-09] MEDS: ALBUTEROL SULF HFA 90MCG INH 200DOSE IN PRN (09:40)
[2020-09-09] MEDS ORDERED: cloNIDine HCL 0.1 MG TAB PO PRN (10:15)
[2020-09-09] MEDS ORDERED: LORazepam 0.5 MG TAB PO PRN (10:15)
[2020-09-09 12:58] VITALS: BP 129/88
[2020-09-09] MEDS: ERGOCALCIFEROL 50,000 UNIT(1.25MG) CAP PO SCH (16:35)
[2020-09-09 17:00] VITALS: BP 138/95
[2020-09-09 22:00] VITALS: BP 129/82
[2020-09-10 05:00] VITALS: BP 129/80
[2020-09-10 09:00] VITALS: BP 118/60
[2020-09-10] MEDS: Glucerna Carbsteady SHAKE Stawberry 8oz PO SCH ×3 (09:00→18:05)
[2020-09-10] MEDS: SODIUM CHLOR 0.9% PF (SALINE LOCK) 10ML VIAL/SYR IV SCH ×2 (09:00→21:38)
[2020-09-10] MEDS: ASCORBIC ACID 1,000 MG TAB PO SCH (09:00)
[2020-09-10] MEDS: APIXABAN 5 MG TAB PO SCH ×2 (09:00→21:52)
[2020-09-10] MEDS: FAMOTIDINE 20 MG TAB PO SCH (09:00)
[2020-09-10] MEDS: CHOLECALCIFEROL (VITD3) 2,000 UNIT CAP/TAB PO SCH (09:01)
[2020-09-10 13:00] VITALS: BP 140/96
[2020-09-10 17:00] VITALS: BP 117/83
[2020-09-10 22:00] VITALS: BP 132/89
[2020-09-11 05:00] VITALS: BP 101/70
[2020-09-11 09:00] VITALS: BP 127/84
[2020-09-11] MEDS: FAMOTIDINE 20 MG TAB PO SCH (10:30)
[2020-09-11] MEDS: ASCORBIC ACID 1,000 MG TAB PO SCH (10:30)
[2020-09-11] MEDS: CHOLECALCIFEROL (VITD3) 2,000 UNIT CAP/TAB PO SCH (10:30)
[2020-09-11] MEDS: APIXABAN 5 MG TAB PO SCH ×2 (10:31→21:04)
[2020-09-11] MEDS: SODIUM CHLOR 0.9% PF (SALINE LOCK) 10ML VIAL/SYR IV SCH ×2 (10:34→21:04)
[2020-09-11] MEDS: Glucerna Carbsteady SHAKE Stawberry 8oz PO SCH ×3 (10:34→18:21)
[2020-09-11 13:00] VITALS: BP 108/62
[2020-09-11] MEDS ORDERED: POTASSIUM CHL 20 Meq TABLET PO ONE (14:15)
[2020-09-11] MEDS ORDERED: FUROSEMIDE 20 MG/2 ML VIAL IV ONE (14:15)
[2020-09-11 17:00] VITALS: BP 127/74
[2020-09-11 20:08] VITALS: BP 127/74
[2020-09-11 22:00] VITALS: BP 136/86
[2020-09-12 05:00] VITALS: BP 142/94
[2020-09-12 05:57] LABS: Basophils # (auto) 0.1 10 ^3/uL (0-0.2); Basophils % (auto) 0.9 % (0.0-2.0); Eosinophils # (auto) 0.7 10 ^3/uL (0-0.8); Eosinophils % (auto) 7.3 % (0.0-7.0); Hematocrit 30.9 % (41.0-53.0); Hemoglobin 10.2 g/dL (13.5-17.5); Lymphocytes # (auto) 1.1 10 ^3/uL (0.4-5.4); Lymphocytes % (auto) 11.9 % (10.0-50.0); Mean Corpuscular Hemoglobin 28.8 pg (28.0-32.0); Mean Corpuscular Hgb Conc. 32.9 g/dL (32.0-36.0); Mean Corpuscular Volume 87.5 fL (80.0-100.0); Monocytes # (auto) 0.7 10 ^3/uL (0-1.3); Monocytes % (auto) 7.7 % (0.0-12.0); Neutrophils # (auto) 6.7 10 ^3/uL (1.6-8.6); Neutrophils % (auto) 72.2 % (37.0-80.0); Platelet Count (auto) 352 10^3/uL (140-450); Red Blood Cells 3.53 10^6/uL (4.5-5.90); Red Cell Distribution Width 17.5 % (11.8-14.3); White Blood Cell 9.3 10^3/uL (4.4-10.8)
[2020-09-12 06:14] LABS: Potassium 3.4 mmol/L (3.5-5.1)
[2020-09-12 06:15] LABS: BUN/Creatinine Ratio 25.8; Calcium 8.7 mg/dL (8.5-10.1)
[2020-09-12 08:36] VITALS: BP 129/89
[2020-09-12] MEDS: Glucerna Carbsteady SHAKE Stawberry 8oz PO SCH ×3 (09:54→18:14)
[2020-09-12] MEDS: ASCORBIC ACID 1,000 MG TAB PO SCH (09:59)
[2020-09-12] MEDS: APIXABAN 5 MG TAB PO SCH ×2 (09:59→21:17)
[2020-09-12] MEDS: FAMOTIDINE 20 MG TAB PO SCH (09:59)
[2020-09-12] MEDS: SODIUM CHLOR 0.9% PF (SALINE LOCK) 10ML VIAL/SYR IV SCH ×2 (09:59→21:16)
[2020-09-12] MEDS: CHOLECALCIFEROL (VITD3) 2,000 UNIT CAP/TAB PO SCH (10:00)
[2020-09-12 13:00] VITALS: BP 131/89
[2020-09-12] MEDS ORDERED: POTASSIUM CHL 20 Meq TABLET PO ONE (14:15)
[2020-09-12 16:48] VITALS: BP 130/87
[2020-09-12 23:07] VITALS: BP 134/79
[2020-09-13 05:36] VITALS: BP 148/89
[2020-09-13] MEDS: Glucerna Carbsteady SHAKE Stawberry 8oz PO SCH ×3 (08:03→17:59)
[2020-09-13 08:51] VITALS: BP 116/88
[2020-09-13] MEDS: ALBUTEROL SULF HFA 90MCG INH 200DOSE IN PRN ×2 (09:00→19:15)
[2020-09-13] MEDS: SODIUM CHLOR 0.9% PF (SALINE LOCK) 10ML VIAL/SYR IV SCH ×2 (09:53→21:32)
[2020-09-13] MEDS: ASCORBIC ACID 1,000 MG TAB PO SCH (09:54)
[2020-09-13] MEDS: APIXABAN 5 MG TAB PO SCH ×2 (09:54→21:31)
[2020-09-13] MEDS: CHOLECALCIFEROL (VITD3) 2,000 UNIT CAP/TAB PO SCH (09:54)
[2020-09-13] MEDS: FAMOTIDINE 20 MG TAB PO SCH (09:54)
[2020-09-13 12:17] VITALS: BP 101/67
[2020-09-13 16:37] VITALS: BP 110/64
[2020-09-13 22:00] VITALS: BP 115/77
[2020-09-14] VITALS (7 sets, daily range): BP systolic 112–144; BP diastolic 53–93
[2020-09-14] MEDS: Glucerna Carbsteady SHAKE Stawberry 8oz PO SCH ×3 (08:00→18:19)
[2020-09-14] MEDS: CHOLECALCIFEROL (VITD3) 2,000 UNIT CAP/TAB PO SCH (10:00)
[2020-09-14] MEDS: ASCORBIC ACID 1,000 MG TAB PO SCH (10:00)
[2020-09-14] MEDS: SODIUM CHLOR 0.9% PF (SALINE LOCK) 10ML VIAL/SYR IV SCH ×2 (10:00→21:34)
[2020-09-14] MEDS: APIXABAN 5 MG TAB PO SCH ×2 (10:00→21:34)
[2020-09-14] MEDS: FAMOTIDINE 20 MG TAB PO SCH (10:00)
[2020-09-14] MEDS: ALBUTEROL SULF HFA 90MCG INH 200DOSE IN PRN (19:56)
[2020-09-15 05:00] VITALS: BP 144/85
[2020-09-15] MEDS: ALBUTEROL SULF HFA 90MCG INH 200DOSE IN PRN (07:31)
[2020-09-15] MEDS: Glucerna Carbsteady SHAKE Stawberry 8oz PO SCH ×3 (08:48→17:20)
[2020-09-15] MEDS: SODIUM CHLOR 0.9% PF (SALINE LOCK) 10ML VIAL/SYR IV SCH ×2 (08:48→21:18)
[2020-09-15] MEDS: FAMOTIDINE 20 MG TAB PO SCH (08:49)
[2020-09-15] MEDS: APIXABAN 5 MG TAB PO SCH ×2 (08:50→21:18)
[2020-09-15 08:54] VITALS: BP 126/88
[2020-09-15] MEDS: CHOLECALCIFEROL (VITD3) 2,000 UNIT CAP/TAB PO SCH (08:57)
[2020-09-15] MEDS: ASCORBIC ACID 1,000 MG TAB PO SCH (08:57)
[2020-09-15] MEDS ORDERED: POTASSIUM CHL 20 Meq TABLET PO ONE (12:15)
[2020-09-15 13:00] VITALS: BP 127/87
[2020-09-15 16:53] VITALS: BP 135/85
[2020-09-15 22:00] VITALS: BP 129/97
[2020-09-16 05:00] VITALS: BP 129/83
[2020-09-16 05:55] LABS: Basophils # (auto) 0.1 10 ^3/uL (0-0.2); Basophils % (auto) 0.9 % (0.0-2.0); Eosinophils # (auto) 0.7 10 ^3/uL (0-0.8); Hematocrit 30.7 % (41.0-53.0); Hemoglobin 10.3 g/dL (13.5-17.5); Lymphocytes # (auto) 1.2 10 ^3/uL (0.4-5.4); Lymphocytes % (auto) 11.1 % (10.0-50.0); Mean Corpuscular Hemoglobin 29.2 pg (28.0-32.0); Mean Corpuscular Hgb Conc. 33.6 g/dL (32.0-36.0); Monocytes # (auto) 0.7 10 ^3/uL (0-1.3); Monocytes % (auto) 6.6 % (0.0-12.0); Neutrophils # (auto) 7.8 10 ^3/uL (1.6-8.6); Neutrophils % (auto) 74.4 % (37.0-80.0); Nucleated Red Blood Cells % 0.1 %; Platelet Count (auto) 343 10^3/uL (140-450); Red Blood Cells 3.53 10^6/uL (4.5-5.90); Red Cell Distribution Width 17.4 % (11.8-14.3); White Blood Cell 10.5 10^3/uL (4.4-10.8)
[2020-09-16 06:07] LABS: Potassium 3.6 mmol/L (3.5-5.1)
[2020-09-16 06:15] LABS: BUN/Creatinine Ratio 28.6; Calcium 8.6 mg/dL (8.5-10.1)
[2020-09-16 08:00] VITALS: BP 123/83
[2020-09-16] MEDS: Glucerna Carbsteady SHAKE Stawberry 8oz PO SCH ×3 (08:00→17:33)
[2020-09-16 08:53] VITALS: BP 123/83
[2020-09-16] MEDS: SODIUM CHLOR 0.9% PF (SALINE LOCK) 10ML VIAL/SYR IV SCH ×2 (09:33→21:42)
[2020-09-16] MEDS: APIXABAN 5 MG TAB PO SCH ×2 (09:37→21:42)
[2020-09-16] MEDS: FAMOTIDINE 20 MG TAB PO SCH (09:38)
[2020-09-16] MEDS: CHOLECALCIFEROL (VITD3) 2,000 UNIT CAP/TAB PO SCH (09:38)
[2020-09-16] MEDS: ERGOCALCIFEROL 50,000 UNIT(1.25MG) CAP PO SCH (09:38)
[2020-09-16] MEDS: ASCORBIC ACID 1,000 MG TAB PO SCH (09:38)
[2020-09-16 12:47] VITALS: BP 112/79
[2020-09-16 16:35] VITALS: BP 125/72
[2020-09-16 22:00] VITALS: BP 114/70
[2020-09-17] VITALS (7 sets, daily range): BP systolic 108–156; BP diastolic 62–94
[2020-09-17] MEDS: ALBUTEROL SULF HFA 90MCG INH 200DOSE IN PRN (07:29)
[2020-09-17] MEDS: SODIUM CHLOR 0.9% PF (SALINE LOCK) 10ML VIAL/SYR IV SCH ×2 (09:12→21:55)
[2020-09-17] MEDS: ASCORBIC ACID 1,000 MG TAB PO SCH (09:12)
[2020-09-17] MEDS: Glucerna Carbsteady SHAKE Stawberry 8oz PO SCH ×3 (09:12→18:17)
[2020-09-17] MEDS: APIXABAN 5 MG TAB PO SCH ×2 (09:12→21:55)
[2020-09-17] MEDS: FAMOTIDINE 20 MG TAB PO SCH (09:12)
[2020-09-17] MEDS: CHOLECALCIFEROL (VITD3) 2,000 UNIT CAP/TAB PO SCH (09:13)
[2020-09-17] MEDS: ERGOCALCIFEROL 50,000 UNIT(1.25MG) CAP PO SCH (09:13)
[2020-09-18 05:00] VITALS: BP 119/78
[2020-09-18 09:00] VITALS: BP 134/78
[2020-09-18] MEDS: FAMOTIDINE 20 MG TAB PO SCH (11:10)
[2020-09-18] MEDS: ASCORBIC ACID 1,000 MG TAB PO SCH (11:10)
[2020-09-18] MEDS: APIXABAN 5 MG TAB PO SCH ×2 (11:10→21:51)
[2020-09-18] MEDS: CHOLECALCIFEROL (VITD3) 2,000 UNIT CAP/TAB PO SCH (11:11)
[2020-09-18] MEDS: Glucerna Carbsteady SHAKE Stawberry 8oz PO SCH ×3 (12:47→19:16)
[2020-09-18] MEDS: SODIUM CHLOR 0.9% PF (SALINE LOCK) 10ML VIAL/SYR IV SCH ×2 (12:47→21:51)
[2020-09-18 13:00] VITALS: BP 94/63
[2020-09-18 13:55] VITALS: BP 133/84
[2020-09-18 17:00] VITALS: BP 148/51
[2020-09-18 22:11] VITALS: BP 128/77
[2020-09-19 05:30] VITALS: BP 133/54
[2020-09-19 09:00] VITALS: BP 104/44
[2020-09-19] MEDS: Glucerna Carbsteady SHAKE Stawberry 8oz PO SCH ×3 (09:57→18:37)
[2020-09-19] MEDS: SODIUM CHLOR 0.9% PF (SALINE LOCK) 10ML VIAL/SYR IV SCH ×2 (09:58→22:00)
[2020-09-19] MEDS: CHOLECALCIFEROL (VITD3) 2,000 UNIT CAP/TAB PO SCH (09:58)
[2020-09-19] MEDS: APIXABAN 5 MG TAB PO SCH (09:58)
[2020-09-19] MEDS: ASCORBIC ACID 1,000 MG TAB PO SCH (09:58)
[2020-09-19] MEDS: FAMOTIDINE 20 MG TAB PO SCH (09:58)
[2020-09-19] MEDS ORDERED: TEMAZEPAM 15 MG CAP PO PRN (11:15)
[2020-09-19 12:44] VITALS: BP 116/83
[2020-09-19 16:43] VITALS: BP 140/90
[2020-09-19 22:00] VITALS: BP 105/69
[2020-09-19 22:13] VITALS: BP 80/31
[2020-09-20 05:00] VITALS: BP 94/76
[2020-09-20] MEDS: Glucerna Carbsteady SHAKE Stawberry 8oz PO SCH ×3 (08:48→18:49)
[2020-09-20 09:00] VITALS: BP 114/72
[2020-09-20] MEDS: FAMOTIDINE 20 MG TAB PO SCH (09:12)
[2020-09-20] MEDS: CHOLECALCIFEROL (VITD3) 2,000 UNIT CAP/TAB PO SCH (09:12)
[2020-09-20] MEDS: ASCORBIC ACID 1,000 MG TAB PO SCH (09:13)
[2020-09-20] MEDS: SODIUM CHLOR 0.9% PF (SALINE LOCK) 10ML VIAL/SYR IV SCH ×2 (10:19→21:44)
[2020-09-20 13:00] VITALS: BP 129/83
[2020-09-20 17:00] VITALS: BP 123/87
[2020-09-20 22:00] VITALS: BP 107/60
[2020-09-21 05:00] VITALS: BP 113/69
[2020-09-21] MEDS: Glucerna Carbsteady SHAKE Stawberry 8oz PO SCH ×3 (08:00→18:06)
[2020-09-21 09:00] VITALS: BP 132/82
[2020-09-21] MEDS: FAMOTIDINE 20 MG TAB PO SCH (09:23)
[2020-09-21] MEDS: SODIUM CHLOR 0.9% PF (SALINE LOCK) 10ML VIAL/SYR IV SCH ×2 (09:24→23:39)
[2020-09-21] MEDS: ASCORBIC ACID 1,000 MG TAB PO SCH (09:24)
[2020-09-21] MEDS: CHOLECALCIFEROL (VITD3) 2,000 UNIT CAP/TAB PO SCH (09:24)
[2020-09-21 13:00] VITALS: BP_SYST 118; BP_SYST 124; BP_DIAS 69; BP_DIAS 80
[2020-09-21 17:28] VITALS: BP 127/78
[2020-09-21 22:00] VITALS: BP 116/66
[2020-09-22 05:00] VITALS: BP 123/55
[2020-09-22] MEDS: Glucerna Carbsteady SHAKE Stawberry 8oz PO SCH ×2 (07:57→12:26)
[2020-09-22 08:47] VITALS: BP 143/89
[2020-09-22] MEDS: FAMOTIDINE 20 MG TAB PO SCH (09:43)
[2020-09-22] MEDS: SODIUM CHLOR 0.9% PF (SALINE LOCK) 10ML VIAL/SYR IV SCH (09:43)
[2020-09-22] MEDS: ASCORBIC ACID 1,000 MG TAB PO SCH (09:44)
[2020-09-22] MEDS: CHOLECALCIFEROL (VITD3) 2,000 UNIT CAP/TAB PO SCH (09:44)
[2020-09-22 13:00] VITALS: BP 150/84
[2020-09-22 15:38] VITALS: BP 135/83
[2020-09-22 17:02] VITALS: BP 120/82
== END 2020-09-22 17:47 | disposition home or self-care (01) | DRG 720 ==
LOC: EDBD 11:10 → ER 11:10 → OVERFLOW 11:11 → ICU WEST 07-29 13:20 → TELE-WESTW 08-22 17:55 → TELE-EAST 09-01 17:55 → EAST 09-12 14:17 → WEST WING 09-17 16:55
PROVIDERS: ADMIT Hospitalist; ATTEND Internal Medicine
PROC: 5A09357 Assistance with Respiratory Ventilation, Less than 24 Consecutive Hours, Continuous Positive Airway Pressure (ICD-10-PCS; principal; 2020-07-28)
PROC: XW033H5 Introduction of Tocilizumab into Peripheral Vein, Percutaneous Approach, New Technology Group 5 (ICD-10-PCS; 2020-07-29)
PROC: 03HY32Z Insertion of Monitoring Device into Upper Artery, Percutaneous Approach (ICD-10-PCS; 2020-07-29)
PROC: 5A1955Z Respiratory Ventilation, Greater than 96 Consecutive Hours (ICD-10-PCS; 2020-07-29)
PROC: 0BH17EZ Insertion of Endotracheal Airway into Trachea, Via Natural or Artificial Opening (ICD-10-PCS; 2020-07-29)
PROC: XW033E5 Introduction of Remdesivir Anti-infective into Peripheral Vein, Percutaneous Approach, New Technology Group 5 (ICD-10-PCS; 2020-07-31)
PROC: XW13325 Transfusion of Convalescent Plasma (Nonautologous) into Peripheral Vein, Percutaneous Approach, New Technology Group 5 (ICD-10-PCS; 2020-08-01)
PROC: 02HV33Z Insertion of Infusion Device into Superior Vena Cava, Percutaneous Approach (ICD-10-PCS; 2020-08-10)
DX: A41.89 Other specified sepsis (principal); U07.1 COVID-19; J12.82 Pneumonia due to coronavirus disease 2019; J96.01 Acute respiratory failure with hypoxia; N17.0 Acute kidney failure with tubular necrosis; I21.4 Non-ST elevation (NSTEMI) myocardial infarction; E43 Unspecified severe protein-calorie malnutrition; E87.2 Acidosis; N18.4 Chronic kidney disease, stage 4 (severe); D68.69 Other thrombophilia; E66.01 Morbid (severe) obesity due to excess calories; E87.5 Hyperkalemia; D64.9 Anemia, unspecified; E78.5 Hyperlipidemia, unspecified; E55.9 Vitamin D deficiency, unspecified; G72.81 Critical illness myopathy; I12.9 Hypertensive chronic kidney disease with stage 1 through stage 4 chronic kidney disease, or unspecified chronic kidney disease; D89.839 Cytokine release syndrome, grade unspecified; Z68.43 Body mass index [BMI] 50.0-59.9, adult
CPT/HCPCS: 31500; 36415; 36569; 36600; 51702; 70450; 71045; 74018; 76775; 80048; 80053; 80061; 80307; 81001; 82040; 82306; 82550; 82570; 82728; 82805; 82962; 83036; 83605; 83615; 83735; 83880; 84100; 84300; 84443; 84478; 84484; 85007; 85025; 85027; 85379; 85610; 85730; 86141; 86850; 86900; 86901; 87040; 87070; 87077; 87081; 87086; 87186; 87205; 87426; 87804; 92610; 93005; 93306; 94002; 94003; 94640; 94660; 96365; 96366; 96367; 96375; 96376; 97110; 97116; 97163; 97530; 99291; C9113; G0378; J0330; J0696; J1100; J1450; J1815; J1956; J2250; J2543; J2704; J3490; J7060; P9047

== ENCOUNTER → 2020-11-16 | Outpatient (CLI) | payer MEDICAID ==
[2020-11-16 12:57] LABS: Basophils # (auto) 0.2 10 ^3/uL (0-0.2); Basophils % (auto) 2.7 % (0.0-2.0); Eosinophils # (auto) 0.9 10 ^3/uL (0-0.8); Eosinophils % (auto) 10.5 % (0.0-7.0); Hematocrit 43.4 % (41.0-53.0); Hemoglobin 14.2 g/dL (13.5-17.5); Lymphocytes # (auto) 0.6 10 ^3/uL (0.4-5.4); Lymphocytes % (auto) 7.1 % (10.0-50.0); Mean Corpuscular Hemoglobin 28.3 pg (28.0-32.0); Mean Corpuscular Hgb Conc. 32.8 g/dL (32.0-36.0); Mean Corpuscular Volume 86.2 fL (80.0-100.0); Monocytes # (auto) 0.3 10 ^3/uL (0-1.3); Monocytes % (auto) 3.7 % (0.0-12.0); Neutrophils # (auto) 6.5 10 ^3/uL (1.6-8.6); Nucleated Red Blood Cells % 0.2 %; Platelet Count (auto) 304 10^3/uL (140-450); Red Blood Cells 5.04 10^6/uL (4.5-5.90); Red Cell Distribution Width 14.1 % (11.8-14.3); White Blood Cell 8.5 10^3/uL (4.4-10.8)
== END | disposition home or self-care (01) ==
LOC: LAB 11:32
PROVIDERS: ATTEND Internal Medicine
DX: E55.9 Vitamin D deficiency, unspecified (principal); E78.5 Hyperlipidemia, unspecified; R73.03 Prediabetes
CPT/HCPCS: 36415; 82306; 84443; 85025

== ENCOUNTER → 2021-01-09 | Outpatient (CLI) | payer MEDICAID | END | disposition home or self-care (01) | LOC: LAB 15:21 | PROVIDERS: ATTEND Internal Medicine Pulmonary Disease | DX: Z01.812 Encounter for preprocedural laboratory examination (principal); Z20.822 Contact with and (suspected) exposure to COVID-19 | CPT/HCPCS: 36415; 87426 ==

== ENCOUNTER → 2021-01-10 | Outpatient (CLI) | payer MEDICAID ==
[~2021-01-10] MED LIST: ALBUTEROL SULF 2.5 MG/0.5ML(0.5%) NEB SOLN ONE
== END | disposition home or self-care (01) ==
LOC: RT 09:16
PROVIDERS: ATTEND Internal Medicine
DX: U07.1 COVID-19 (principal); J98.4 Other disorders of lung
CPT/HCPCS: 94060; 94727; 94729

== ENCOUNTER → 2021-02-23 | Outpatient (CLI) | payer MEDICAID ==
[2021-02-23 11:09] LABS: Basophils # (auto) 0.1 10 ^3/uL (0-0.2); Basophils % (auto) 1.1 % (0.0-2.0); Eosinophils # (auto) 0.4 10 ^3/uL (0-0.8); Eosinophils % (auto) 4.5 % (0.0-7.0); Hematocrit 44.9 % (41.0-53.0); Hemoglobin 14.8 g/dL (13.5-17.5); Lymphocytes # (auto) 1.4 10 ^3/uL (0.4-5.4); Lymphocytes % (auto) 16.6 % (10.0-50.0); Mean Corpuscular Hemoglobin 27.1 pg (28.0-32.0); Mean Corpuscular Volume 82.2 fL (80.0-100.0); Monocytes # (auto) 0.5 10 ^3/uL (0-1.3); Neutrophils # (auto) 6.3 10 ^3/uL (1.6-8.6); Neutrophils % (auto) 71.8 % (37.0-80.0); Red Blood Cells 5.46 10^6/uL (4.5-5.90); Red Cell Distribution Width 15.8 % (11.8-14.3); White Blood Cell 8.7 10^3/uL (4.4-10.8)
[2021-02-23 12:25] LABS: Cholesterol 184 mg/dL (< 200); HDL Cholesterol 44 mg/dL (40-59); LDL Cholesterol 116 mg/dL (< 100); Triglycerides 131 mg/dL (< 150)
== END | disposition home or self-care (01) ==
LOC: LAB 10:53
PROVIDERS: ATTEND Internal Medicine
DX: E11.9 Type 2 diabetes mellitus without complications (principal); E55.9 Vitamin D deficiency, unspecified
CPT/HCPCS: 36415; 80061; 83036; 85025

== ENCOUNTER → 2021-03-31 | Outpatient (CLI) | payer MEDICAID | END | disposition home or self-care (01) | LOC: LAB 09:09 | PROVIDERS: ATTEND Internal Medicine | DX: E78.5 Hyperlipidemia, unspecified (principal); E11.9 Type 2 diabetes mellitus without complications; I10 Essential (primary) hypertension | CPT/HCPCS: 82043; 82306 ==

== ENCOUNTER → 2021-08-10 | Outpatient (CLI) | payer MEDICAID ==
[2021-08-10 10:51] LABS: Albumin 3.9 g/dL (3.4-5.0); Bilirubin, Direct 0.1 mg/dL (0-0.2)
[2021-08-10 11:09] LABS: Bilirubin, Total 0.4 mg/dL (0.2-1.0); Total Protein 7.3 g/dL (6.4-8.2)
== END | disposition home or self-care (01) ==
LOC: LAB 07:37
PROVIDERS: ATTEND Internal Medicine
DX: E11.9 Type 2 diabetes mellitus without complications (principal); E78.5 Hyperlipidemia, unspecified
CPT/HCPCS: 36415; 80076; 83880

== ENCOUNTER → 2021-10-04 | Outpatient (CLI) | payer MEDICAID ==
[2021-10-04 10:02] LABS: Albumin 3.4 g/dL (3.4-5.0)
[2021-10-04 10:06] LABS: Bilirubin, Direct 0.2 mg/dL (0-0.2); Bilirubin, Total 0.5 mg/dL (0.2-1.0); Total Protein 7.2 g/dL (6.4-8.2)
== END | disposition home or self-care (01) ==
LOC: LAB 08:34
PROVIDERS: ATTEND Internal Medicine
DX: E11.9 Type 2 diabetes mellitus without complications (principal); E78.5 Hyperlipidemia, unspecified
CPT/HCPCS: 36415; 80061; 80076; 83036

== ENCOUNTER 2022-03-08 17:05 | Inpatient (IN) | payer MEDICAID ==
[~2022-03-08] VITALS: Ht 170.2 cm; Wt 145.5 kg
[2022-03-08 22:00] LABS: Basophils # (auto) 0.1 10 ^3/uL (0-0.2); Basophils % (auto) 0.8 % (0.0-2.0); Eosinophils # (auto) 0.2 10 ^3/uL (0-0.8); Eosinophils % (auto) 3.4 % (0.0-7.0); Hematocrit 51.4 % (41.0-53.0); Hemoglobin 16.2 g/dL (13.5-17.5); Lymphocytes # (auto) 1.3 10 ^3/uL (0.4-5.4); Lymphocytes % (auto) 19.1 % (10.0-50.0); Mean Corpuscular Hgb Conc. 31.6 g/dL (32.0-36.0); Mean Corpuscular Volume 85.5 fL (80.0-100.0); Monocytes # (auto) 1.1 10 ^3/uL (0-1.3); Monocytes % (auto) 15.1 % (0.0-12.0); Neutrophils # (auto) 4.3 10 ^3/uL (1.6-8.6); Neutrophils % (auto) 61.6 % (37.0-80.0); Nucleated Red Blood Cells % 0.1 %; Red Blood Cells 6.01 10^6/uL (4.5-5.90); Red Cell Distribution Width 15.9 % (11.8-14.3)
[2022-03-08 22:19] LABS: Albumin 3.2 g/dL (3.4-5.0); BUN/Creatinine Ratio 17.1; Potassium 3.9 mmol/L (3.5-5.1)
[2022-03-08 22:22] LABS: Bilirubin, Total 0.3 mg/dL (0.2-1.0); Total Protein 7.5 g/dL (6.4-8.2)
[2022-03-09] MEDS ORDERED: AZITHROMYCIN 500MG/ 250ML 250 ML IV ONE (08:00)
[2022-03-09] MEDS ORDERED: methylPREDNISolone SOD SUCC 125 MG/2 ML VL IV ONE (08:00)
[2022-03-09] MEDS ORDERED: IPRATROPIUM BROM 0.5 MG/2.5ML INH SOL NEB ONE (08:00)
[2022-03-09] MEDS ORDERED: ALBUTEROL SULF 2.5 MG/0.5ML(0.5%) NEB SOLN NEB ONE (08:00)
[2022-03-09 15:53] LABS: Urine Bacteria FEW /hpf (None Seen); Urine Blood Negative /uL (Negative); Urine Mucus FEW (None Seen); Urine Specific Gravity 1.027 (1.001-1.035); Urine WBC 9 /hpf (0 - 3)
[2022-03-09] MEDS ORDERED: IOHEXOL 350 MG/ML 100ML IJ ONE (16:16)
[2022-03-09] MEDS ORDERED: HYDROcodone-ACET 5/325MG TAB PO PRN (17:00)
[2022-03-09] MEDS ORDERED: ACETAMINOPHEN 325 MG TAB PO PRN (17:00)
[2022-03-09] MEDS ORDERED: MORPHINE SULFATE INJ 2 MG/ml SYRG IV PRN (17:00)
[2022-03-09] MEDS ORDERED: ONDANSETRON HCL 4 MG/2 ML VIAL IV PRN (17:00)
[2022-03-09] MEDS ORDERED: DOCUSATE SOD 100 MG CAP PO PRN (17:00)
[2022-03-09 23:00] VITALS: BP 141/78
[2022-03-09 23:04] VITALS: BP 141/78
[2022-03-09] MEDS ORDERED: LOSA-39 PO (23:40)
[2022-03-09] MEDS ORDERED: METF-370 PO (23:40)
[2022-03-09] MEDS ORDERED: ATOR20TA50 PO (23:40)
[2022-03-10 05:00] VITALS: BP 111/74
[2022-03-10 07:08] LABS: Basophils # (auto) 0.1 10 ^3/uL (0-0.2); Basophils % (auto) 0.6 % (0.0-2.0); Eosinophils # (auto) 0 10 ^3/uL (0-0.8); Eosinophils % (auto) 0.2 % (0.0-7.0); Hematocrit 49.2 % (41.0-53.0); Hemoglobin 15.7 g/dL (13.5-17.5); Lymphocytes # (auto) 0.8 10 ^3/uL (0.4-5.4); Lymphocytes % (auto) 7.7 % (10.0-50.0); Mean Corpuscular Hemoglobin 27.7 pg (28.0-32.0); Mean Corpuscular Hgb Conc. 31.9 g/dL (32.0-36.0); Mean Corpuscular Volume 86.8 fL (80.0-100.0); Monocytes # (auto) 1.1 10 ^3/uL (0-1.3); Monocytes % (auto) 10.5 % (0.0-12.0); Neutrophils # (auto) 8.3 10 ^3/uL (1.6-8.6); Nucleated Red Blood Cells % 0.2 %; Red Blood Cells 5.67 10^6/uL (4.5-5.90); Red Cell Distribution Width 15.5 % (11.8-14.3); White Blood Cell 10.2 10^3/uL (4.4-10.8)
[2022-03-10 07:21] LABS: Albumin 3.1 g/dL (3.4-5.0); BUN/Creatinine Ratio 25.4; Calcium 8.8 mg/dL (8.5-10.1); Potassium 4.4 mmol/L (3.5-5.1)
[2022-03-10 07:24] LABS: Bilirubin, Total 0.2 mg/dL (0.2-1.0); Total Protein 6.8 g/dL (6.4-8.2)
[2022-03-10 08:57] VITALS: BP 138/84
[2022-03-10] MEDS: AZITHROMYCIN 500MG/ 250ML 250 ML IV SCH (09:35)
[2022-03-10] MEDS: ENOXAPARIN SOD 40 MG/0.4 ML SYRINGE SC SCH (09:35)
[2022-03-10 13:00] VITALS: BP 75/84
[2022-03-10 17:00] VITALS: BP 118/75
[2022-03-10 22:00] VITALS: BP 118/73
[2022-03-11 01:25] VITALS: BP 118/73
[2022-03-11 05:00] VITALS: BP 116/65
[2022-03-11 09:00] VITALS: BP 119/72
[2022-03-11] MEDS: ENOXAPARIN SOD 40 MG/0.4 ML SYRINGE SC SCH (09:37)
[2022-03-11] MEDS: cefTRIAXone 1GM/50ML D5W 50 ML IV SCH (09:37)
[2022-03-11] MEDS: AZITHROMYCIN 500MG/ 250ML 250 ML IV SCH (10:58)
[2022-03-11 13:00] VITALS: BP 132/82
[2022-03-11] MEDS: ALBUTEROL SULF 2.5 MG/0.5ML(0.5%) NEB SOLN NEB SCH ×2 (13:04→19:48)
[2022-03-11 17:00] VITALS: BP 129/78
[2022-03-11 22:00] VITALS: BP 134/95
[2022-03-12 05:00] VITALS: BP 141/101
[2022-03-12] MEDS: ALBUTEROL SULF 2.5 MG/0.5ML(0.5%) NEB SOLN NEB SCH ×3 (06:27→19:39)
[2022-03-12] MEDS: cefTRIAXone 1GM/50ML D5W 50 ML IV SCH (08:40)
[2022-03-12] MEDS: ENOXAPARIN SOD 40 MG/0.4 ML SYRINGE SC SCH (08:40)
[2022-03-12 08:56] VITALS: BP 151/99
[2022-03-12 09:04] LABS: Monocytes # (auto) 0.6 10 ^3/uL (0-1.3); Neutrophils # (auto) 4.6 10 ^3/uL (1.6-8.6)
[2022-03-12 09:07] LABS: Basophils # (auto) 0 10 ^3/uL (0-0.2); Basophils % (auto) 0.5 % (0.0-2.0); Eosinophils # (auto) 0.3 10 ^3/uL (0-0.8); Eosinophils % (auto) 5.1 % (0.0-7.0); Hemoglobin 16.3 g/dL (13.5-17.5); Lymphocytes # (auto) 1.1 10 ^3/uL (0.4-5.4); Lymphocytes % (auto) 15.9 % (10.0-50.0); Mean Corpuscular Hemoglobin 27.4 pg (28.0-32.0); Mean Corpuscular Hgb Conc. 31.9 g/dL (32.0-36.0); Mean Corpuscular Volume 85.8 fL (80.0-100.0); Monocytes % (auto) 9.5 % (0.0-12.0); Red Blood Cells 5.94 10^6/uL (4.5-5.90); White Blood Cell 6.7 10^3/uL (4.4-10.8)
[2022-03-12 09:27] LABS: BUN/Creatinine Ratio 21.5; Calcium 8.9 mg/dL (8.5-10.1); Magnesium 2.4 mg/dL (1.6-2.6); Potassium 4.3 mmol/L (3.5-5.1)
[2022-03-12] MEDS ORDERED: AZITHROMYCIN 250 MG TAB PO SCH (10:00)
[2022-03-12 13:00] VITALS: BP 132/92
[2022-03-12 16:45] VITALS: BP 140/95
[2022-03-12] MEDS ORDERED: DOXY-332 PO (17:52)
[2022-03-12 17:56] VITALS: BP 140/95
== END 2022-03-12 19:30 | disposition home or self-care (01) | DRG 139 ==
LOC: ER 17:10 → TELE 03-09 16:55 → TELE-CENTR 03-09 22:56
PROVIDERS: ADMIT Internal Medicine; ATTEND Internal Medicine
PROC: 5A09357 Assistance with Respiratory Ventilation, Less than 24 Consecutive Hours, Continuous Positive Airway Pressure (ICD-10-PCS; principal; 2022-03-10)
PROC: 5A09357 Assistance with Respiratory Ventilation, Less than 24 Consecutive Hours, Continuous Positive Airway Pressure (ICD-10-PCS; 2022-03-11)
DX: J18.9 Pneumonia, unspecified organism (principal); J96.01 Acute respiratory failure with hypoxia; E44.1 Mild protein-calorie malnutrition; Z68.43 Body mass index [BMI] 50.0-59.9, adult; J98.11 Atelectasis; E11.9 Type 2 diabetes mellitus without complications; I10 Essential (primary) hypertension; Z20.822 Contact with and (suspected) exposure to COVID-19; R77.8 Other specified abnormalities of plasma proteins; E66.2 Morbid (severe) obesity with alveolar hypoventilation; Z86.16 Personal history of COVID-19; Z87.01 Personal history of pneumonia (recurrent)
CPT/HCPCS: 36415; 36600; 71045; 71275; 80048; 80053; 81001; 82805; 83735; 84484; 85025; 85379; 87040; 87278; 87804; 94640; 94660; 96365; 96375; G0378; J0696

== ENCOUNTER → 2022-04-04 | Outpatient (CLI) | payer MEDICAID ==
[~2022-04-04] MED LIST changes: -ALBUTEROL SULF 2.5 MG/0.5ML(0.5%) NEB SOLN ONE; +ATOR20TA50 PO; +DOXY-332 PO; +LOSA-39 PO; +METF-370 PO
== END | disposition home or self-care (01) ==
LOC: LAB 09:23
PROVIDERS: ATTEND Internal Medicine
DX: I10 Essential (primary) hypertension (principal); U09.9 Post COVID-19 condition, unspecified; E11.9 Type 2 diabetes mellitus without complications
CPT/HCPCS: 36415; 82043; 83036; 83880; 84443

== ENCOUNTER 2022-06-30 17:00 | Emergency (ER) | payer MEDICAID, OTHER ==
[~2022-06-30] VITALS: Ht 172.7 cm; Wt 118.2 kg
[2022-06-30] MEDS ORDERED: IBUPROFEN 800 MG TAB PO ONE (23:00)
[2022-07-01] MEDS ORDERED: IBUP800T27 PO (00:11)
[2022-07-01 00:22] VITALS: BP 133/85
== END 2022-07-01 04:03 | disposition home or self-care (01) ==
LOC: EDBD 17:00 → ER 17:03
DX: S29.011A Strain of muscle and tendon of front wall of thorax, initial encounter (principal); E11.9 Type 2 diabetes mellitus without complications; E78.5 Hyperlipidemia, unspecified; I10 Essential (primary) hypertension; M54.2 Cervicalgia; V43.62XA Car passenger injured in collision with other type car in traffic accident, initial encounter; Y93.89 Activity, other specified; Y92.488 Other paved roadways as the place of occurrence of the external cause; Y99.8 Other external cause status
CPT/HCPCS: 36415; 71250; 74176; 84484; 93005

== ENCOUNTER → 2022-07-02 | Outpatient (CLI) | payer MEDICAID ==
[~2022-07-02] MED LIST changes: +IBUP800T27 PO
[2022-07-02 11:59] LABS: Potassium 3.8 mmol/L (3.5-5.1)
[2022-07-02 12:04] LABS: Albumin 3.3 g/dL (3.4-5.0); BUN/Creatinine Ratio 14.3
[2022-07-02 12:16] LABS: Bilirubin, Total 0.5 mg/dL (0.2-1.0); Total Protein 7.7 g/dL (6.4-8.2)
== END | disposition home or self-care (01) ==
LOC: LAB 10:22
PROVIDERS: ATTEND Internal Medicine
DX: E11.9 Type 2 diabetes mellitus without complications (principal); I10 Essential (primary) hypertension
CPT/HCPCS: 36415; 80053; 80061; 82043

== ENCOUNTER → 2022-08-30 | Outpatient (CLI) | payer MEDICAID ==
[2022-08-30 10:11] LABS: Cholesterol 129 mg/dL (< 200); HDL Cholesterol 41 mg/dL (40-59); LDL Cholesterol 65 mg/dL (< 100); Triglycerides 129 mg/dL (< 150)
== END | disposition home or self-care (01) ==
LOC: LAB 08:12
PROVIDERS: ATTEND Internal Medicine
DX: E11.9 Type 2 diabetes mellitus without complications (principal); E78.5 Hyperlipidemia, unspecified
CPT/HCPCS: 36415; 80061; 83036

== ENCOUNTER → 2022-11-29 | Outpatient (CLI) | payer MEDICAID ==
[2022-11-29 09:06] LABS: Albumin 3.5 g/dL (3.4-5.0); Calcium 9.2 mg/dL (8.5-10.1); Potassium 4.1 mmol/L (3.5-5.1)
[2022-11-29 09:11] LABS: BUN/Creatinine Ratio 19.1 (10.0-20.0); Bilirubin, Total 0.4 mg/dL (0.2-1.0); Total Protein 7.6 g/dL (6.4-8.2)
== END | disposition home or self-care (01) ==
LOC: LAB 08:15
PROVIDERS: ATTEND Internal Medicine
DX: E11.9 Type 2 diabetes mellitus without complications (principal); E78.5 Hyperlipidemia, unspecified
CPT/HCPCS: 36415; 80053; 80061; 82306; 83036

== ENCOUNTER → 2023-04-25 | Outpatient (CLI) | payer MEDICAID ==
[~2023-04-25] MED LIST changes: -DOXY-332 PO; +DOXY-448 PO; +IBUP-1456 PO; -IBUP800T27 PO; -LOSA-39 PO; +LOSA100T58 PO
[2023-04-25 12:32] LABS: Chloride 109 mmol/L (98-107); Potassium 3.6 mmol/L (3.5-5.1); Sodium 140 mmol/L (136-145)
[2023-04-25 12:33] LABS: Anion Gap 6 (5-15); Calcium 9.3 mg/dL (8.7-10.4); Carbon Dioxide 25 mmol/L (20-30)
[2023-04-25 12:38] LABS: BUN/Creatinine Ratio 14.3 (10.0-20.0); Blood Urea Nitrogen 13 mg/dL (9-23); Glucose 83 mg/dL (74-106)
== END | disposition home or self-care (01) ==
LOC: LAB 11:01
PROVIDERS: ATTEND Internal Medicine
DX: E11.9 Type 2 diabetes mellitus without complications (principal)
CPT/HCPCS: 36415; 80048

== ENCOUNTER → 2023-05-23 | Outpatient (CLI) | payer MEDICAID ==
[2023-05-23 10:33] LABS: Alanine Aminotransferase 21 U/L (7-40); Albumin 4.6 g/dL (3.2-4.8); Alkaline Phosphatase 87 U/L (46-116); Anion Gap 6 (5-15); Aspartate Aminotransferase 11 U/L (13-40); BUN/Creatinine Ratio 14.3 (10.0-20.0); Blood Urea Nitrogen 12 mg/dL (9-23); Calcium 9.1 mg/dL (8.5-10.1); Carbon Dioxide 25 mmol/L (20-30); Chloride 110 mmol/L (98-107); Cholesterol 97 mg/dL (< 200); Glucose 87 mg/dL (74-106); HDL Cholesterol 34 mg/dL (40-59); LDL Cholesterol 45 mg/dL (< 100); Potassium 3.9 mmol/L (3.5-5.1); Sodium 141 mmol/L (136-145); Triglycerides 95 mg/dL (< 150)
[2023-05-23 10:34] LABS: Bilirubin, Total 0.5 mg/dL (0.2-1.0); Total Protein 7.2 g/dL (5.7-8.2)
== END | disposition home or self-care (01) ==
LOC: LAB 09:33
PROVIDERS: ATTEND Internal Medicine
DX: E11.9 Type 2 diabetes mellitus without complications (principal); E78.5 Hyperlipidemia, unspecified
CPT/HCPCS: 36415; 80053; 80061; 83036

== ENCOUNTER → 2023-08-29 | Outpatient (CLI) | payer MEDICAID ==
[2023-08-29 09:20] LABS: Chloride 106 mmol/L (98-107); Potassium 4.4 mmol/L (3.5-5.1); Sodium 139 mmol/L (136-145)
[2023-08-29 09:21] LABS: Anion Gap 6 (5-15); Carbon Dioxide 27 mmol/L (20-30)
[2023-08-29 09:22] LABS: Calcium 9.7 mg/dL (8.5-10.1)
[2023-08-29 09:27] LABS: BUN/Creatinine Ratio 12.6 (10.0-20.0); Blood Urea Nitrogen 12 mg/dL (9-23); Glucose 91 mg/dL (74-106)
[2023-08-29 10:34] LABS: Creatinine, Urine 129.02 mg/dL (30.0-125.0)
== END | disposition home or self-care (01) ==
LOC: LAB 08:36
PROVIDERS: ATTEND Internal Medicine
DX: E11.9 Type 2 diabetes mellitus without complications (principal)
CPT/HCPCS: 36415; 80048; 82043; 82570; 83036

== ENCOUNTER → 2024-06-09 | Outpatient (CLI) | payer MEDICAID ==
[~2024-06-09] MED LIST changes: -DOXY-448 PO; +DOXY100C79 PO; +LOSA-535 PO; -LOSA100T58 PO
[2024-06-09 09:49] LABS: Cholesterol 122 mg/dL (< 200)
[2024-06-09 09:50] LABS: LDL Cholesterol 55 mg/dL (< 100); Triglycerides 96 mg/dL (< 150)
[2024-06-09 09:52] LABS: HDL Cholesterol 47 mg/dL (40-59)
== END | disposition home or self-care (01) ==
LOC: LAB 08:45
PROVIDERS: ATTEND Internal Medicine
DX: Z12.11 Encounter for screening for malignant neoplasm of colon (principal); E78.5 Hyperlipidemia, unspecified; E11.9 Type 2 diabetes mellitus without complications
CPT/HCPCS: 36415; 80061; 83036

== ENCOUNTER → 2024-06-14 | Outpatient (CLI) | payer MEDICAID | END | disposition home or self-care (01) | LOC: LAB 12:17 | PROVIDERS: ATTEND Internal Medicine | DX: Z12.11 Encounter for screening for malignant neoplasm of colon (principal); E11.9 Type 2 diabetes mellitus without complications; E78.5 Hyperlipidemia, unspecified | CPT/HCPCS: 82270 ==

== ENCOUNTER 2025-06-06 11:20 | Outpatient (CLI) | payer MEDICAID ==
[2025-06-06 11:50] LABS: Hematocrit 39.9 % (41.0-53.0); Hemoglobin 13.6 g/dL (13.5-17.5); Mean Corpuscular Hemoglobin 29.1 pg (28.0-32.0); Mean Corpuscular Volume 85.6 fL (80.0-100.0); Nucleated Red Blood Cells % 0.1 %
[2025-06-06 13:19] LABS: Microalb/Creat Ratio, Urine 13.0
== END 2025-06-06 17:00 | disposition home or self-care (01) ==
LOC: LAB 11:20
PROVIDERS: ATTEND Internal Medicine
DX: E66.9 Obesity, unspecified (principal); I10 Essential (primary) hypertension; E11.9 Type 2 diabetes mellitus without complications
CPT/HCPCS: 36415; 82043; 82306; 82570; 83036; 84443; 85025